=== PATIENT | male | born 1995 | race Caucasian/White ===

== ENCOUNTER 2019-08-12 13:39 | Emergency (ER) | payer OTHER ==
[~2019-08-12] VITALS: Ht 175.3 cm; Wt 98.6 kg
[2019-08-12] MEDS ORDERED: NS 1,000 ML IV ONE (14:00)
[2019-08-12] MEDS ORDERED: diphenhydrAMINE 50MG/ML VIAL (J1200) IV ONE (14:00)
[2019-08-12] MEDS ORDERED: METOCLOPRAMIDE INJ 10MG/2ML VIAL (J2765 PER 1) IV ONE (14:00)
--- NOTE | 2019-08-12 14:09 | REP ---
Head CT without contrast: History: Trauma. Comparison study: No comparison study. CT findings: Bone window settings demonstrate an intact bony calvarium. There is no evidence of skull fracture or incidental bony calvarial lesion. The visualized paranasal sinuses appear clear. No intraorbital abnormality is seen. On soft tissue window setting images; the lateral, third, and fourth ventricles are normal in size and position. Edwards-white differentiation pattern is normal above and below the tentorium. There are is no evidence of intracranial hemorrhage. No mass, edema, infarction, or midline shift is seen. No extra-axial fluid collection is appreciated. Impression: Negative noncontrast head CT. Electronically Signed by Yobany Shah MD 08/12/2019 02:00 P
[2019-08-12] MEDS ORDERED: levETIRAcetam INJection 1,000 MG in D5W 100 ML IV ONE (15:00)
[2019-08-12] MEDS ORDERED: KEPP1TAB2 PO (15:05)
[2019-08-12 15:45] VITALS: BP 116/58
== END 2019-08-12 16:09 | disposition home or self-care (01) ==
LOC: M ED 13:39
DX: G40.419 Other generalized epilepsy and epileptic syndromes, intractable, without status epilepticus (principal); Z86.69 Personal history of other diseases of the nervous system and sense organs
CPT/HCPCS: 70450; 80047; 96361; 96365; 96375; 99284; J1200; J1953; J2765

== ENCOUNTER → 2019-08-15 | Outpatient (CLI) | payer OTHER ==
[~2019-08-15] MED LIST: KEPP1TAB2 PO
[2019-08-15 14:34] LABS: FOLATE 18.8 NG/ML; RHEUMATOID FACTOR QUANT < 10.0 IU/ML (<15.0); TOTAL 25(OH) VITAMIN D 10.9 NG/ML (30.0-100.0); VITAMIN B12 LEVEL 1118 PG/ML
[2019-08-29 14:08] LABS: ANTINUCLEAR ANTIBODIES DIRECT Negative (Negative)
== END ==
LOC: M WUC 10:54
PROVIDERS: ATTEND Psychiatry & Neurology Neurology
DX: G43.909 Migraine, unspecified, not intractable, without status migrainosus (principal); R56.9 Unspecified convulsions

== ENCOUNTER → 2019-12-20 | Outpatient (CLI) | payer OTHER | LOC: M LAB 08:40 | PROVIDERS: ATTEND Psychiatry & Neurology Neurology | DX: G43.909 Migraine, unspecified, not intractable, without status migrainosus (principal) ==

== ENCOUNTER 2020-01-12 15:35 | Emergency (ER) | payer OTHER ==
[~2020-01-12] VITALS: Ht 175.3 cm; Wt 97.7 kg
[2020-01-12] MEDS ORDERED: LEVE10003 PO (16:09)
[2020-01-12] MEDS ORDERED: VITA50005 PO (16:09)
[2020-01-12] MEDS ORDERED: NS 1,000 ML IV ONE (16:30)
[2020-01-12] MEDS ORDERED: KETOROLAC 30 MG/ML 1ML VIAL IV ONE (16:30)
[2020-01-12] MEDS ORDERED: ACETAMINOPHEN 325 MG TAB PO ONE (18:15)
[2020-01-12 18:44] VITALS: BP 146/84
== END 2020-01-12 18:30 | disposition home or self-care (01) ==
LOC: M ED 15:35
DX: R51.9 Headache, unspecified (principal); G40.419 Other generalized epilepsy and epileptic syndromes, intractable, without status epilepticus; Z79.899 Other long term (current) drug therapy
CPT/HCPCS: 80180; 96361; 96374; 99284; J1885

== ENCOUNTER 2020-02-24 19:53 | Emergency (ER) | payer OTHER ==
[~2020-02-24] VITALS: Ht 175.3 cm; Wt 95.5 kg
[~2020-02-24 19:53] MED LIST changes: +LEVE10003 PO; +VITA50005 PO
[2020-02-24] MEDS ORDERED: SUMA100T2 PO (20:16)
[2020-02-24] MEDS ORDERED: DIVA500T94 PO (20:24)
[2020-02-24] MEDS ORDERED: NS 1,000 ML IV ONE (20:30)
[2020-02-24 20:37] LABS: BASO # 0.1 10^3/uL (0.0-0.2); BASO % 0.9 % (0.0-1.0); EOS # 0.3 10^3/uL (0.0-0.5); EOS % 2.9 % (0.0-3.0); HEMATOCRIT 47.5 % (42.0-52.0); LYMPH # 1.2 10^3/uL (1.5-5.0); LYMPH % 12.4 % (24.0-44.0); MEAN CORPUSCULAR HEMOGLOBIN 30.2 pg (27.0-33.0); MEAN CORPUSCULAR HGB CONC 33.7 g/dl (32.0-36.5); MEAN CORPUSCULAR VOLUME 89.8 fl (80.0-96.0); MONO # 0.9 10^3/uL (0.0-0.8); MONO % 8.7 % (0.0-5.0); NEUTROPHILS # 7.1 10^3/uL (1.5-8.5); NEUTROPHILS % 71.8 % (36.0-66.0); PLATELET COUNT, AUTOMATED 220 10^3/uL (150-450); RED BLOOD COUNT 5.29 10^6/uL (4.30-6.10); WHITE BLOOD COUNT 9.9 10^3/uL (4.0-10.0)
[2020-02-24] MEDS ORDERED: DIVALPROEX 500 MG TAB PO ONE (20:45)
--- NOTE | 2020-02-24 21:02 | REPVR ---
PROCEDURE INFORMATION: Exam: XR Chest, 1 View Exam date and time: 02/24/2020 8:51 PM Age: 24 years old Clinical indication: Shortness of breath; Additional info: Altered mental status TECHNIQUE: Imaging protocol: XR of the chest Views: 1 view. COMPARISON: No relevant prior studies available. FINDINGS: Lungs: Unremarkable. No consolidation. Pleural space: Unremarkable. No pleural effusion. No pneumothorax. Heart/Mediastinum: Unremarkable. No cardiomegaly. Bones/joints: Unremarkable. IMPRESSION: No acute findings. Electronically signed by: Anthony Geronimo On 02/24/2020 21:02:22 PM
[2020-02-24 21:49] LABS: ACETAMINOPHEN LEVEL < 2.0 UG/ML (10.0-30.0); ALBUMIN 4.1 GM/DL (3.2-5.2); ALT/SGPT 69 U/L (12-78); BILIRUBIN,DIRECT 0.2 MG/DL (0.0-0.2); BILIRUBIN,TOTAL 0.7 MG/DL (0.2-1.0); BLOOD UREA NITROGEN 11 MG/DL (7-18); CALCIUM LEVEL 9.2 MG/DL (8.5-10.1); CARBON DIOXIDE LEVEL 23 MEQ/L (21-32); CHLORIDE LEVEL 107 MEQ/L (98-107); CREATININE FOR GFR 0.96 MG/DL (0.70-1.30); ETHYL ALCOHOL (ETHANOL) < 0.003 % (0.000-0.010); GLOMERULAR FILTRATION RATE > 60.0 (>60); GLUCOSE, FASTING 101 MG/DL (70-100); POTASSIUM SERUM 4.5 MEQ/L (3.5-5.1); SALICYLATE LEVEL < 1.7 MG/DL (5.0-30.0); SODIUM LEVEL 139 MEQ/L (136-145); TOTAL PROTEIN 7.4 GM/DL (6.4-8.2)
[2020-02-24 21:57] LABS: AMPHETAMINES LEVEL URINE NEGATIVE (NEGATIVE); BARBITURATES URINE NEGATIVE (NEGATIVE); BENZODIAZEPINES URINE NEGATIVE (NEGATIVE); CANNABINOIDS URINE NEGATIVE (NEGATIVE); COCAINE METABOLITE URINE NEGATIVE (NEGATIVE); METHADONE URINE NEGATIVE (NEGATIVE); OPIATES URINE NEGATIVE (NEGATIVE); PHENCYCLIDINE URINE NEGATIVE (NEGATIVE)
[2020-02-24] MEDS ORDERED: DEPA250T32 PO (22:12)
[2020-02-24 22:15] VITALS: BP 139/62
== END 2020-02-24 22:24 | disposition home or self-care (01) ==
LOC: M ED 19:53
DX: G40.409 Other generalized epilepsy and epileptic syndromes, not intractable, without status epilepticus (principal)
CPT/HCPCS: 71045; 80048; 80076; 80164; 80307; 81001; 84443; 85025; 93041; 94760; 96360; 96361; 99285; G0480

== ENCOUNTER 2020-03-14 09:46 | Emergency (ER) | payer OTHER ==
[~2020-03-14] VITALS: Ht 175.3 cm; Wt 102.3 kg
[~2020-03-14 09:46] MED LIST changes: +DEPA250T32 PO; +DIVA500T94 PO; +SUMA100T2 PO
--- OUTSIDE RECORDS SUMMARY | 2020-03-14 10:29 | CCD ---
Author Author [facility] Organization [facility] Address Unknown Phone Unavailable Care Team Providers [employer] Groover Name Role Phone Shellie CLINE IT LEAD Unavailable Unavailable ZEGIL D LUCITA IT LEAD Unavailable Unavailable ZELADANL D LUCITA IT LEAD Unavailable Unavailable Layne Levin MD Unavailable Unavailable Layne Levin MD Unavailable Unavailable Layne Levin MD Unavailable Unavailable Layne Levin MD Unavailable Unavailable Layne Levin MD Unavailable Unavailable Layne Levin MD Unavailable Unavailable Layne Levin MD Unavailable Unavailable Layne Levin MD Unavailable Unavailable Layne Levin MD Unavailable Unavailable Layne Levin MD Unavailable Unavailable Layne Levin MD Unavailable Unavailable Layne Levin MD Unavailable Unavailable Layne Levin MD Unavailable Unavailable Layne Levin MD Unavailable Unavailable Layne Levin MD Unavailable Unavailable Layne Levin MD Unavailable Unavailable Layne Levin MD Unavailable Unavailable Layne Levin MD Unavailable Unavailable Layne Levin MD Unavailable Unavailable Layne Levin MD Unavailable Unavailable Layne Levin MD Unavailable Unavailable Layne Levin MD Unavailable Unavailable Layne Levin MD Unavailable Unavailable Layne Levin MD Unavailable Unavailable Layne Levin MD Unavailable Unavailable Layne Levin MD Unavailable Unavailable Layne Levin MD Unavailable Unavailable Layne Levin MD Unavailable Unavailable Layne Levin MD Unavailable Unavailable Layne Levin MD Unavailable Unavailable Layne Levin MD Unavailable Unavailable Layne Levin MD Unavailable Unavailable Layne Levin MD Unavailable Unavailable Layne Levin MD Unavailable Unavailable Layne Levin MD Unavailable Unavailable Layne Levin MD Unavailable Unavailable Layne Levin MD Unavailable Unavailable Layne Levin MD Unavailable Unavailable Layne Levin MD Unavailable Unavailable Layne Levin MD Unavailable Unavailable Layne Levin MD Unavailable Unavailable Ali, Layne MD Unavailable Unavailable Ali, Layne MD Unavailable Unavailable Ali, Layne MD Unavailable Unavailable Ali, Layne MD Unavailable Unavailable Ali, Layne MD Unavailable Unavailable Ali, Layne MD Unavailable Unavailable Ali, Layne MD Unavailable Unavailable Ali, Layne MD Unavailable Unavailable Hadian, Kyaw Unavailable Unavailable Hadian, Kyaw Unavailable Unavailable Hadian, Kyaw Unavailable Unavailable Hadian, Kyaw Unavailable Unavailable Hadian, Kyaw Unavailable Unavailable Hadian, Kyaw Unavailable Unavailable Hadian, Kyaw Unavailable Unavailable Hadian, Kyaw Unavailable Unavailable Hadian, Kyaw Unavailable Unavailable Hadian, Kyaw Unavailable Unavailable Hadian, Kyaw Unavailable Unavailable Hadian, Kyaw Unavailable Unavailable Hadian, Kyaw Unavailable Unavailable Hadian, Kyaw Unavailable Unavailable Hadian, Kyaw Unavailable Unavailable Hadian, Kyaw Unavailable Unavailable Hadian, Kyaw Unavailable Unavailable Hadian, Kyaw Unavailable Unavailable Hadian, Kyaw Unavailable Unavailable Hadian, Kyaw Unavailable Unavailable Hadian, Kyaw Unavailable Unavailable Hadian, Kyaw Unavailable Unavailable Hadian, Kyaw Unavailable Unavailable Hadian, Kyaw Unavailable Unavailable Hadian, Kyaw Unavailable Unavailable Hadian, Kyaw Unavailable Unavailable Hadian, Kyaw Unavailable Unavailable Hadian, Kyaw Unavailable Unavailable Hadian, Kyaw Unavailable Unavailable Hadian, Kyaw Unavailable Unavailable Hadian, Kyaw Unavailable Unavailable Hadian, Kyaw Unavailable Unavailable Hadian, Kyaw Unavailable Unavailable Re-disclosure Warning The records that you are about to access may contain information from federally-assisted alcohol or drug abuse programs. If such information is present, then the following federally mandated warning applies: This information has been disclosed to you from records protected by federal confidentiality rules (42 CFR part 2). The federal rules prohibit you from making any further disclosure of this information unless further disclosure is expressly permitted by the written consent of the person to whom it pertains or as otherwise permitted by 42 CFR part 2. A general authorization for the release of medical or other information is NOT sufficient for this purpose. The Federal rules restrict any use of the information to criminally investigate or prosecute any alcohol or drug abuse patient.The records that you are about to access may contain highly sensitive health information, the redisclosure of which is protected by Article 27-F of the [facility] Public Health law. If you continue you may have access to information: Regarding HIV / AIDS; Provided by facilities licensed or operated by the [facility] Office of Mental Health; or Provided by the [facility] Office for People With Developmental Disabilities. If such information is present, then the following [facility] mandated warning applies: This information has been disclosed to you from confidential records which are protected by state law. State law prohibits you from making any further disclosure of this information without the specific written consent of the person to whom it pertains, or as otherwise permitted by law. Any unauthorized further disclosure in violation of state law may result in a fine or correction sentence or both. A general authorization for the release of medical or other information is NOT sufficient authorization for further disc losure. Encounters Encounter Providers Location Date Indications Data Source(s ) Outpatient Attender: Kyaw Gilliam ED-LABPNP 01:29:00 PM EST - 03/04/2020 01:30:00 PM [facility] WELL Patient discharged. Outpatient Attender: Layne Levin MD Main office - [place] 02/26/2020 02:30:00 PM EST [facility] ([facility] Outpatient Attender: Layne Levin MD Main office - [place] 12/20/2019 11:00:00 AM EDT [facility] ([facility]) Outpatient Attender: Layne Levin MD Main office - [place] 08/24/2019 01:30:00 PM EDT [facility] ([facility]) Outpatient Attender: Layne Levin MD Main office - [place] 05/25/2019 02:30:00 PM EDT [facility] ([facility]) Outpatient [facility]PS[facility]-LABEJN 03/28/2019 08:22:00 PM [facility] Emergency Attender: LUCITA CLINE [facility] ED-ED 05/2019 04:14:00 PM EST - 03/28/2019 09:08:00 PM EST SEIZURE [facility] SEIZURE Patient discharged. Medications Medication Brand Name Start Date Product Form Dose Route Admi nistrative Instructions Pharmacy Instructions Status Indications Reaction Description Data Source(s) Divalproex Sodium 250 MG Delayed Release Oral Tablet Divalpr oex Sodium 02/26/2020 12:00:00 AM EST ORAL active [facility] ([facility]) Sumatriptan 100 MG Oral Tablet Sumatriptan Succinate 02/06/2020 12:00:00 AM EST ORAL active [facility] ( [facility] ) Divalproex Sodium 500 MG Delayed Release Oral Tablet Divalpr oex Sodium 02/05/2020 12:00:00 AM EST ORAL active [facility] ([facility] ) zonisamide 100 MG Oral Capsule Zonisamide 01/15/2020 12:00:00 AM EST ORAL completed [facility] ([facility] ) Levetiracetam 1000 MG Oral Tablet Levetiracetam 12/20/2019 12:00:00 A M EDT ORAL completed [facility] ([facility] ) Levetiracetam 750 MG Oral Tablet Levetiracetam 08/24/2019 12:00:00 AM EDT ORAL completed [facility] ([facility] ) Ergocalciferol 40298 UNT Oral Capsule Ergocalciferol 08/24/2019 12:00:00 AM EDT ORAL active [facility] ( [facility] ) No Active Medications 08/24/2019 12:00:00 AM EDT completed [facility] ([facility] ) 10 mg 05/26/2019 12:00:00 AM EDT tablet 60 TAKE ONE TABLET BY MOUTH EVERY DAY AT BEDTIME FOR 7 DAYS, THEN TAKE TWO TABLETS AT BEDTIME TAKE ONE TABLET BY MOUTH EVERY DAY AT BEDTIME FOR 7 DAYS, THEN TAKE TWO TABLETS AT BEDTIME SOLD: 05/28/2019 [facility] Amitriptyline Hydrochloride 10 MG Oral Tablet Amitriptyline HCL 05/25/2019 12:00:00 AM EDT ORAL completed [facility] ([facility] ) Insurance Providers Payer name Policy type / Coverage type Policy ID Covered libertarian ID Covered libertarian's relationship to young Policy Young Plan Information [facility] [id number] SP [id number] [facility] [id number] S [id number] [facility] [employer] [facility] [id number] SP [id number] [facility] [id number] S [id number] MEDICAID -CLINIC [id number] [facility] PLAN [id number] Problems, Conditions, and Diagnoses Code Display Name Description Problem Type Effective Dates Data Source(s) [id number] Migraine with typical aura Migraine with typical aura Problem 05/25/2019 12:00:00 AM EDT [facility] ([facility] Other seizures Other seizures Problem 04/06/2019 12:00: 00 AM EST [facility] ([facility] ) [id number] Generalized convulsive epilepsy Generalized conv ulsive epilepsy Problem 04/06/2019 12:00:00 AM EST [facility] ([facility] Surgeries/Procedures Procedure Description Date Indications Data Source(s) Magnetic Resonance Angiogtaphy Head W/O Contrast Material(S) 01/30/2020 12:00:00 AM EST [facility] ([facility] Magnetic Resonance Angiogtaphy Head W/O Contrast Material(S) 01/30/2020 12:00:00 AM EST [facility] ([facility] Magnetic Resonance Angiography Neck W/O Contrast Materials 01/30/2020 12:00:00 AM EST [facility] ([facility] Magnetic Resonance Angiography Neck W/O Contrast Materials 01/30/2020 12:00:00 AM EST [facility] ([facility] ELECTROENCEPHALOGRAM W/REC AWAKE&ASLEEP 10/02/2019 12: 00:00 AM EDT [facility] ([facility] ) ELECTROENCEPHALOGRAM W/REC AWAKE&ASLEEP 10/02/2019 12: 00:00 AM EDT [facility] ([facility] MRI Brain W/O Contrast, Followed By Contrast 0 12:00:00 AM EDT [facility] ([facility] MRI Brain W/O Contrast, Followed By Contrast 0 12:00:00 AM EDT [facility] ([facility] ) ELECTROENCEPHALOGRAM W/REC AWAKE&ASLEEP 04/27/2019 12: 00:00 AM EST [facility] ([facility] ) ELECTROENCEPHALOGRAM W/REC AWAKE&ASLEEP 04/27/2019 12: 00:00 AM EST [facility] ([facility] ) Results ID Date Data Source [id number] 03/05/2020 08:44:00 AM EST [facility] Name Value Range Interpretation Code Description Data Beti rce(s) Supporting Document(s) Respiratory specimen severe acute respir atory syndrome coronavirus 2 (SARS-CoV-2) RNA Negative (qualifier value) [facility] This lab was ordered by [facility] bucky and reported by . ID Date Data Source [id number] 03/05/2020 08:28:00 AM EST [facility] Name Value Range Interpretation Code Description Data Beti rce(s) Supporting Document(s) SARS-CoV-2 RNA INHOUSE Negative Normal (applies to non-n umeric results) [facility] THIS IS A [facility] REPORTABLE COMMUNICABLE DISEASE. Testing was performed using the Written COVID-19 MDx Assay. This test has been authorized by FDA under an (Emergency Use Authorization) EUA for use by authorized laboratories for individuals who are suspected of COVID-19 by their healthcare provider. This test is only authorized for the duration of the declaration that circumstances exist justifying the authorization of emergency use of in vitro diagnostic tests for detection and/or diagnosis of SARS-CoV-2. Methodology: Endpoint RT-PCR. Fact sheets for this EUA assay can be found at the following links: Providers: https://www.fda.gov/media/238389/download Patients : https://www.fda.gov/media/844371/download THIS IS A [facility] REPORTABLE COMMUNICABLE DISEASE Negative results do not preclude SARS-CoV-2 infection and should not be used as the sole basis for patient management decisions. Negative results must be combined with clinical observations,patient history, and epidemiological information. ID Date Data Source [id number] 12/20/2019 08:57:00 AM EDT [facility] ([facility] Name Value Range Interpretation Code Description Data Beti rce(s) Supporting Document(s) Laboratory test finding (navigational concept) Laboratory test result [facility] ([facility]) . 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 Laboratory test finding (navigational concept) Laboratory test result [facility] ([facility] ) . 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 Laboratory test finding (navigational concept) Laboratory test result [facility] ([facility], ) . 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 [place] Insight pathogenicity assessment NOTCH3 c.2953 C>T is a missense variant classified as pathogenic based on the following information: Variant NOTCH3 c.2953 C>T ([id number]) - This variant has not been reported in large, multi-ethnic general populations. - This variant has been identified in at least one individual with clinical features associated with this gene. - At [facility], this variant goodrich s been found in a single case where an alternate explanation for disease was also identified. - ClinVar contains an entry for this cas josé miguel (URL: www.ncbi.nlm.nih.gov/clinvar/; Variation ID: [id number]). - This variant alters a critical locatio n within the protein, and is expected to severely affect function and cause disease. - Greater than 90% of pathogenic mutatio ns identified in NOTCH3 involve the gain or loss of a cysteine residue within the epidermal growth factor (EGF)-like repeat domain. References: Priya S, et al. (2009) Brain 132: 933-9. (PMID: 01829853) Ayana N, et al. (2005) Arch Neurol 62: 1091-4. (PMID: 67108699) Rosangela Faustin, et al. (2004) Brain 127: 2533-9. (PMID: 83659436) Laurel Friedman, et al. (2001) Lancet 358: 2049-51. (PMID: 25842198) Laurel Friedman, et al. (1997) Lancet 350: 1511-5. (PMID: 2074200) Genome Aggregation Database (flatevomAD), [place], [place] (URL: http://gnomad.broadinstitute.org) Recommendations: This individual's family members are at risk for possessing or inheriting this variant. Careful reconciliation of this molecular data with this individual's clinical presentation, family history, and other laboratory results, in conjunction with genetic counseling, is highly recommended. Health care providers, please contact the [facility] Client Services Department at if you wish to consult with a Individual Small Group Instructor or a Genetic Counselor regarding this test result. Background information: Cerebral small vessel disease represents a heterogeneous group of disorders leading to stroke and cognitive impairment. While most small vessel diseases appear sporadic and related to age and hypertension, a minority of patients with familial small vessel disease carry pathogenic variants in one of the known small vessel disease genes such as the NOTCH3 gene. CADASIL is a hereditary small vessel disease of the brain leading to recurrent strokes, migraine with aura, cognitive decline, and dementia. In some individuals, mood disturbances and other neurological manifestations, including focal or generalized seizures, may also be present. Pathogenic variant in the NOTCH3 gene have been associated with CADASIL. The NOTCH3 gene encodes NOTCH3, a cell surface receptor important in arterial development. Pathogenic variants in NOTCH3 cause degeneration of VSMCs and thickening of the arterial rosales. CADASIL resulting from pathogenic variants in this gene is inherited as an autosomal dominant disorder. The majority of pathogenic variants have been reported to be loss or gain of a cysteine in EGF motifs. NOTCH3 gene information: RODNEY ID: *[id number]; Chromosome Location: 19p13.12; NCBI Reference Sequence: [id number] 0435.2; In the cDNA, the initiator codon, ATG (methionine), is designated as codon number 1 and the "A" is designated as nucleotide +1. The initiator codon is located in exon 1 and all subsequent numbering is sequential. Phenotype information: RODNEY ID: #[id number] for cerebral arteriopathy, autosomal dominant, with subcortical infarcts and leukoencephalopathy; CADASIL Laboratory test finding (navigational concept) Laboratory test result [facility] ([facility]) . DNA sequencing was performed using advanced ("next-generation") sequencing technology. Advanced sequencing was performed on sheared genomic DNA libraries enriched for target regions using in-solution hybrid capture. Target regions include coding regions in exons and at least ten non-coding nucleotides adjacent to each of these coding regions. Resulting sequences were then analyzed using bioinformatics tools in a standardized process that includes alignment to the GRCh37/hg19 genomic build and use of the nTAG Interactive Analysis Toolkit 2.3-9 for variant detection. A mean coverage depth of at least 30 sequencing reads is obtained within each target region, with a minimum coverage depth of at least 20X. Target regions with coverage depths less than the minimum are not reported. Internal testing demonstrated approximately 99% sensitivity and approximately 99% specificity for detecting DNA sequence variation. In some limited circumstances, such as for regions that are difficult to sequence using advanced sequencing, Alejandra sequencing of PCR-amplified target regions (using bi-directional sequence or alternate dye chemistries) may be performed in lieu of this process. Benign and likely benign variants, if identified, are considered normal and are not reported, but are available upon request. Limitations of DNA sequencing analysis: This method does not detect large deletions, insertions, or structural variations, and may not detect variants in patients exhibiting mosaicism. Furthermore, allele dropout cannot be detected in [place] sequenced regions. Additionally, this test will not detect variants in low coverage regions, which may occur in an analysis of this scope. Regions with exceptionally high or low GC content, repetitive regions or regions having a high degree of similarity with other regions in the genome are more susceptible to low coverage and/or reduced sensitivity. Furthermore, this test does not detect variants in regions of the gene not analyzed (including promoter, 5' and 3' untranslated regions, introns, and certain regions having consistently low coverage).Although rare, false positive or false negative results may occur. All results should be interpreted in the context of clinical findings, relevant history, and other laboratory data. Limitation of variant analysis: The classification and interpretation of the variant(s) identified reflect the current state of [facility] understanding at the time of this report. Variant classification and interpretation are subject to professional judgment, and may change for a variety of reasons, including but not limited to, updates in classification guidelines and availability of additional scientific and clinical information. This test result should be used in conjunction with the health care providers clinical evaluation. Inquiry regarding potential changes to the classification of the variant is strongly recommended prior to making any future clinical decision. For questions regarding variant classification updates or our Family Insight Program, please call [facility] at [phone] to speak to a genetic counselor or medical laboratory technicians, or visit [email or web address]. For patients who are interested in sharing de-identified genetic and health information to improve understanding of genetics and health, please visit [email or web address]. GenomeConnect is an online registry designed by the Clinical Genome [employer] ([employer]) and is not affiliated with [employer]. Laboratory test finding (navigational concept) Laboratory test result [facility] ([facility] ) . 1. Sb Jasmine et al. (2013) J Clin Jonas rosci 20: 322-3. (PMID: 33076085) 2. PercyRANDY ch, et al. (2013) J Chin Med Assoc 76: 319-24. (PMID: 17735424) 3. Toyin Guillory et al. (2009) Bra in 132: 1601-12. (PMID: 37958456) 4. Priya S, et al. (2009) Brain 132: 9 33-9. (PMID: 53229437) 5. Mirian Oconnell, et al. (2013) J Clin A esthet Dermatol 6: 29-33. (PMID: 16839143) 6. Cm H, et al. (2012) PLoS One 7: e 58291. (PMID: 91495651) This test was developed and its analytical performance characteristics have been determined by [facility]. It has not been cleared or approved by the U.S. Food and Drug Administration. This assay has been validated pursuant to the CLIA regulations and is used for clinical purposes. Performed at: - [facility] [address] [id number] Production Administrative Assistant: Clay Honeycutt PhD, Phone: [phone] ID Date Data Source [id number] 08/15/2019 11:01:00 AM EDT [facility] ([facility] ) Name Value Range Interpretation Code Description Data Beti rce(s) Supporting Document(s) NOTCH3 gene mutations found [Identifier] in Blood or Tissue by Molecular genetics method Nominal Laboratory test result [facility] ([facility], ) SPECIMEN TOO OLD FOR ANALYSIS. Please resubmit with new order and sample. ID Date Data Source [id number] 08/15/2019 11:01:00 AM EDT [facility] ([facility] Name Value Range Interpretation Code Description Data Beti rce(s) Supporting Document(s) Antinuclear Antibodies Direct Laboratory test result [facility] ([facility] ) ID Date Data Source [id number] 08/15/2019 11:01:00 AM EDT [facility] ([facility] ) Name Value Range Interpretation Code Description Data Beti rce(s) Supporting Document(s) Rheumatoid factor [Units/volume] in Serum or Plasma Laboratory test result [facility] ([facility] ) Calcidiol [Mass/volume] in Serum or Plasma 10.9 ng/mL 30.0-100.0 [facility] ([facility], ) Erythrocyte sedimentation rate by 2H Westergren method 1 mm/hr 0-1 5 [facility] ([facility]) ID Date Data Source [id number] 08/15/2019 11:01:00 AM EDT [facility] ([facility]) Name Value Range Interpretation Code Description Data [facility] rce(s) Supporting Document(s) Vitamin B12 Level 1118 pg/mL [facility] ([facility]) VITAMIN B12 NORMAL RANGE NORMAL 247 - 911 PG/ML INDETERMINATE 211 - 246 PG/ML DEFICIENT LESS THAN 211 PG/ML Folate 18.8 ng/mL [facility] ([facility]) FOLATE NORMAL RANGE NORMAL GREATER THAN 5.4 NG/ML INDETERMINATE 3.4-5.4 NG/ML DEFICIENT LESS THAN 3.4 NG/ML ID Date Data Source [id number] 03/28/2019 08:50:00 PM [facility] Name Value Range Interpretation Code Description [facility] Supporting Document(s) Sodium 146 mmol/L 136-145 Above high normal [facility] Potassium 3.5-5.1 Normal (applies to non-numeric resul ts) [facility] Chloride 108 mmol/L 98-107 Above high normal [facility] Carbon Dioxide CO2 21-32 Normal (applies to non-numer ic results) [facility] Anion Gap 5.0-16.0 Normal (applies to non-numeric resul ts) [facility] BUN 15 mg/dL 7-18 Normal (applies to non-numeric results) [facility] Creatinine,Serum 0.8-1.5 Normal (applies to non-numeric results) [facility] GFR >60 Normal (applies to non-numeric results) [facility] Glucose Level 105 mg/dL 60-99 Above high normal [facility] Reference range is only applicable when patient is fasting Note the following drug interference: Sulfasalazine Sulfapyridine Can see falsely depressed Can see falsely elevated result with up to 17% results with up to 11% decrease in measurement increase in measurement Recommend patients be collected for this test prior to administration of either drug. Calcium 8.5-10.1 Below low normal [facility] spital Bilirubin,Total 0.1-1.9 Normal (applies to non-numeric results) [facility] SGOT(AST) 34 U/L 15-37 Normal (applies to non-numeric resul ts) [facility] Note the following drug interference: Sulfasalazine Sulfapyridine Can see falsely depressed Can see falsely elevated result with up to 10% results with up to 10% decrease in measurement increase in measurement Recommend patients be collected for this test prior to administration of either drug. SGPT(ALT) 57 U/L 12-78 Normal (applies to non-numeric resul ts) [facility] Note the following drug interference: Sulfasalazine Sulfapyridine Can see falsely depressed Can see falsely elevated result with up to 29% results with up to 10% decrease in measurement increase in measurement Recommend patients be collected for this test prior to administration of either drug. Alkaline Phosphatase 61 U/L 38-126 Normal (applies to non-num wiliam results) [facility] can increase Alkaline Phosp le vels up to 2 times the normal adult value. Normal values for children and adolescents are 2 to 3 times the normal adult value. Total Protein 6.0-8.2 Normal (applies to non-numeric re sults) [facility] Albumin Level 3.4-5.0 Normal (applies to non-numeric re sults) [facility] ID Date Data Source [id number] 03/28/2019 08:50:00 PM EST [facility] Name Value Range Interpretation Code Description [facility] Supporting Document(s) Lactic Acid,3 Hr Post 0.4-2.0 Normal (applies to non-nu meric results) [facility] ID Date Data Source [id number] 03/28/2019 08:36:00 PM EST [facility] Name Value Range Interpretation Code Description Data Beti rce(s) Supporting Document(s) White Blood Count 3.5-10.5 Above high normal [facility] Red Blood Count 4.30-5.70 Normal (applies to non-numeric results) [facility] Hemoglobin 13.5-17.5 Normal (applies to non-numeric resul ts) [facility] Hematocrit 38.8-50.0 Normal (applies to non-numeric resul ts) [facility] Mean Corpuscular Volume 81.2-95.1 Normal (applies to non- numeric results) [facility] Mean Corpuscular Hgb 25.6-32.2 Normal (applies to non-num wiliam results) [facility] Mean Corpuscular Hgb Conc 32.0-36.0 Normal (applies to no n-numeric results) [facility] Red Cell Distribution Width 11.8-15.6 Normal (appli es to non-numeric results) [facility] Platelet Count 192 x10 3/uL 150-450 Normal (applies to non-numeric results) [facility] Mean Platelet Volume 9.4-12.4 Normal (applies to non-num wiliam results) [facility] Neutrophils% (Auto) 31.0-71.0 Above high normal [facility] Lymphocytes% (Auto) 20.0-55.0 Below low normal [facility] Monocytes% (Auto) 4.0-12.0 Normal (applies to non-numeri c results) [facility] Eosinophils% (Auto) 1.0-8.0 Below low normal [facility] Basophils% (Auto) 0.0-2.0 Normal (applies to non-numeri c results) [facility] Immature Granulocytes% (Auto) 0.0-2.0 Normal (dannie lies to non-numeric results) [facility] Neutrophils# (Auto) 1.50-6.20 Above high normal [facility] Lymphocytes# (Auto) 1.20-4.00 Normal (applies to non-nume jory results) [facility] Monocytes# (Auto) 0.00-0.90 Above high normal [facility] Eosinophils# (Auto) 0.00-0.50 Normal (applies to non-nume jory results) [facility] Basophils# (Auto) 0.00-0.20 Normal (applies to non-numeri c results) [facility] Immature Granulocytes# (Auto) 0.00-7.00 No rmal (applies to non-numeric results) [facility] ID Date Data Source [id number] 04/03/2019 08:20:00 AM EST [facility] spital NO GROWTH AFTER 120 HOURS (5 Days) Proc edure Performed By: [facility] [address] [place] [address] Director: Melissa Hall Name Value Range Interpretation Code Description Data Beti rce(s) Supporting Document(s) ID Date Data Source [id number] 04/02/2019 10:28:00 PM EST [facility] NO GROWTH AFTER 120 HOURS (5 Days) Pr ocedure Performed By: [facility] [address] [place] [address] Director: Melissa Hall Name Value Range Interpretation Code Description Data Beti rce(s) Supporting Document(s) ID Date Data Source [id number] 04/03/2019 08:19:00 AM EST [facility] spital NO GROWTH AFTER 120 HOURS (5 Days) Proc edure Performed By: [facility] [address] [place] [address] Director: Melissa Hall Name Value Range Interpretation Code Description Data Beti rce(s) Supporting Document(s) ID Date Data Source [id number] 04/02/2019 10:28:00 PM EST [facility] NO GROWTH AFTER 120 HOURS (5 Days) Pr ocedure Performed By: [facility] [address] [place] [address] Director: Melissa Hall Name Value Range Interpretation Code Description Data Beti rce(s) Supporting Document(s) ID Date Data Source [id number] 03/28/2019 05:54:00 PM [facility] Name Value Range Interpretation Code Description Data Beti rce(s) Supporting Document(s) Lactic Acid 0.4-2.0 PH [facility] l A repeat Lactic Acid will automatically be reflexed by lab to be drawn in 3 hours. Provider re-order is not necessary. JESSICA read back critical information 03/28/19 2116 LAB.POFRA ID Date Data Source [id number] 03/29/2019 11:59:00 AM [facility] Imaging Services Department Imaging Report [address] [place], [place] [address] %(RAD)RES..mtdd.print.filter("line") Name: DAMION LAURENT : 1995 Age/Sex: 23M Ordering Provider: AARON Mcmahon Med Rec #: [id number] Reg Status: [facility] Room #: Date of Service: 03/28/19 Report Number: [id number] cc:PCP None Send Report To: [id number] CT/CT Abdomen & Pelvis No Contras Reason for exam: pain vomiting FINDINGS: Examination of the heart and pericardia demonstrate no significant abnormalities. The lung bases are clear. The liver, spleen, pancreas, adrenals and kidneys demonstrate no significant abnormalities. The bowel is of normal caliber. There is no lymphadenopathy by CT size criteria. There is a normal appearing gallbladder. No abnormal intraabdominal fluid collections. IMPRESSION: Normal appearing gallbladder. No evidence of acute gastrointestinal or intraabdominal pathology. While performing the above CT exam, the following dose reduction techniques wereused: *Automated exposure control *Adjustment of the mA and/or kV according to patient size *Use of iterative reconstruction technique CT Dose in mGy: Contrast Agent: Amount in ml: Method of Administration: REPORT SIGNATURE ON FILE Reported By: Peyman Gamboa MD <Electronically signed by Peyman Gamboa MD> 03/30/19 0837 Dictation Date/Time: 03/28/19 1840 Transcribed Date/Time: 03/29/19 1159 Social Economist: HAILEY Name Value Range Interpretation Code Description Data Beti rce(s) Supporting Document(s) ID Date Data Source [id number] 03/28/2019 06:36:00 PM [facility] spital Method performed by Isothermal Nucle ic Acid Amplification. Reference value: Influenza A and B viral RNA not detected. This result does not rule out co-infections with other pathogens or identify any specific influenza A or B virus subtype/lineage. Negative results do not preclude infection with influenza virus and should not be the sole basis of a patient treatment decision.Not DetectedNot Detected Name Value Range Interpretation Code Description Data [facility](s) Supporting Document(s) ID Date Data Source [id number] 03/28/2019 05:29:00 PM [facility] Collected By: Nurse Initials: [place] Time Collected: 1658 Collected By: Nurse Initials: [place] Time Collected: 1658 Name Value Range Interpretation Code Description Data [facility](s) Supporting Document(s) Color,Urine Colorl-Dk Y Normal (applies to non-numeric res ults) [facility] Clarity,Urine Clear Normal (applies to non-numeric re sults) [facility] Specific [place],Urine 1.005-1.030 Normal (applies to non- numeric results) [facility] pH,Urine 5.0-8.0 Normal (applies to non-numeric resul ts) [facility] Protein,Urine Negative Normal (applies to non-numeric re sults) [facility] Glucose,Urine Negative Normal (applies to non-numeric re sults) [facility] Ketones,Urine Negative Normal (applies to non-numeric re sults) [facility] Blood,Urine Negative [facility] Bilirubin,Urine Negative Normal (applies to non-numeric results) [facility] Urobilinogen,Urine 0.2-1.0 Normal (applies to non-numer ic results) [facility] Leukocyte Esterase,Urine Negative Normal (applies to non -numeric results) [facility] Nitrite,Urine Negative Normal (applies to non-numeric re sults) [facility] ID Date Data Source [id number] 03/28/2019 05:29:00 PM [facility] Collected By: Nurse Initials: [place] Time Collected: 1658 Collected By: Nurse Initials: [place] Time Collected: 1658 Name Value Range Interpretation Code Description Data Beti rce(s) Supporting Document(s) RBC,Urine None Seen [facility] WBC,Urine None Seen Normal (applies to non-numeric resul ts) [facility] Casts,Urine None Seen Normal (applies to non-numeric resu lts) [facility] Epithelial Cells,Urine None - Few Normal (applies to non-n umeric results) [facility] Amorphous Sediment,Urine None Seen [facility] Bacteria,Urine None Seen Normal (applies to non-numeric r esults) [facility] ID Date Data Source [id number] 03/28/2019 05:26:00 PM [facility] Name Value Range Interpretation Code Description Data Beti rce(s) Supporting Document(s) UDS Phencyclidine Screen Negative Normal (applies to non -numeric results) [facility] UDS Benzodiazepines Screen Negative Normal (applies to n on-numeric results) [facility] UDS Cocaine Screen Negative Normal (applies to non-numer ic results) [facility] UDS Ampetamine Screen Negative Normal (applies to non-nu meric results) [facility] UDS Cannabinoids Screen Negative Normal (applies to non- numeric results) [facility] UDS Opiates Screen Negative Normal (applies to non-numer ic results) [facility] UDS Barbiturates Screen Negative Normal (applies to non- numeric results) [facility] UDS Tricyclic Screen Negative Normal (applies to non-num wiliam results) [facility] Therapeutic Drug Ranges for Emergency Threshold Levels (ng/mL) PCP 25 Benzodiazepine 300 Cocaine 300 Amphetamines 1000 Cannabinoids 50 Opiates 300 Barbiturates 300 Tricyclic(TCA) 1000 Emergency toxicology analytes exceeding the therapeutic threshold levels are positive. Positive findings are unconfirmed. Positive drug levels may be confirmed at the request of the ordering provider. Results are to be used for medical treatment purposes only. ID Date Data Source [id number] 03/29/2019 07:16:00 AM [facility] Imaging Services Department Imaging Report [address] [place], [place] [address] %(RAD)RES..mtdd.print.filter("line") Name: DAMION LAURENT : 1995 Age/Sex: 23M Ordering Provider: AARON Mcmahon Med Rec #: [id number] Reg Status: [facility] ER Room #: Date of Service: 03/28/19 Report Number: [id number] cc:PCP None Send Report To: [id number] CT/CT Head No Contrast Reason for exam: seizure FINDINGS: Ventricular system is midline without evidence for mass effect. No areas of localized brain edema identified. No signs for acute intracranial bleed either intra or extra axial bleed. Bones of the skull are intact. IMPRESSION: Normal noncontrast CT brain. While performing the above CT exam, the following dose reduction techniques wereused: *Automated exposure control *Adjustment of the mA and/or kV according to patient size *Use of iterative reconstruction technique CT Dose in mGy: Contrast Agent: Amount in ml: Method of Administration: REPORT SIGNATURE ON FILE Reported By: Vivien Shultz MD <Electronically signed by Vivien Shultz MD> 03/29/19 1057 Dictation Date/Time: 03/28/19 1702 Transcribed Date/Time: 03/29/19 0716 Social Economist: LEVON Name Value Range Interpretation Code Description Data Beti rce(s) Supporting Document(s) ID Date Data Source [id number] 03/28/2019 05:15:00 PM EST [facility] Name Value Range Interpretation Code Description Data Beti rce(s) Supporting Document(s) Sodium 145 mmol/L 136-145 Normal (applies to non-numeric resul ts) [facility] Potassium 3.5-5.1 Normal (applies to non-numeric resul ts) [facility] Chloride 104 mmol/L 98-107 Normal (applies to non-numeric resul ts) [facility] Carbon Dioxide CO2 21-32 Below low normal [facility] Anion Gap 5.0-16.0 Above high normal [facility] ospital BUN 18 mg/dL 7-18 Normal (applies to non-numeric results) [facility] Creatinine,Serum 0.8-1.5 Above high normal [facility] GFR 57 mL/min >60 Below low normal [facility] spital Glucose Level 142 mg/dL 60-99 Above high normal [facility] Reference range is only applicable when patient is fasting Note the following drug interference: Sulfasalazine Sulfapyridine Can see falsely depressed Can see falsely elevated result with up to 17% results with up to 11% decrease in measurement increase in measurement Recommend patients be collected for this test prior to administration of either drug. Calcium 8.5-10.1 Normal (applies to non-numeric resul ts) [facility] Bilirubin,Total 0.1-1.9 Normal (applies to non-numeric results) [facility] SGOT(AST) 30 U/L 15-37 Normal (applies to non-numeric resul ts) [facility] Note the following drug interference: Sulfasalazine Sulfapyridine Can see falsely depressed Can see falsely elevated result with up to 10% results with up to 10% decrease in measurement increase in measurement Recommend patients be collected for this test prior to administration of either drug. SGPT(ALT) 64 U/L 12-78 Normal (applies to non-numeric resul ts) [facility] Note the following drug interference: Sulfasalazine Sulfapyridine Can see falsely depressed Can see falsely elevated result with up to 29% results with up to 10% decrease in measurement increase in measurement Recommend patients be collected for this test prior to administration of either drug. Alkaline Phosphatase 76 U/L 38-126 Normal (applies to non-num wiliam results) [facility] can increase Alkaline Phosp le vels up to 2 times the normal adult value. Normal values for children and adolescents are 2 to 3 times the normal adult value. Total Protein 6.0-8.2 Normal (applies to non-numeric re sults) [facility] Albumin Level 3.4-5.0 Normal (applies to non-numeric re sults) [facility] ID Date Data Source [id number] 03/28/2019 05:15:00 PM EST [facility] Name Value Range Interpretation Code Description Data Beti rce(s) Supporting Document(s) Troponin I 0.000-0.056 Normal (applies to non-numeric resu lts) [facility] ID Date Data Source [id number] 03/28/2019 04:59:00 PM EST [facility] Name Value Range Interpretation Code Description Data Beti rce(s) Supporting Document(s) White Blood Count 3.5-10.5 Above high normal [facility] Red Blood Count 4.30-5.70 Normal (applies to non-numeric results) [facility] Hemoglobin 13.5-17.5 Normal (applies to non-numeric resul ts) [facility] Hematocrit 38.8-50.0 Normal (applies to non-numeric resul ts) [facility] Mean Corpuscular Volume 81.2-95.1 Normal (applies to non- numeric results) [facility] Mean Corpuscular Hgb 25.6-32.2 Normal (applies to non-num wiliam results) [facility] Mean Corpuscular Hgb Conc 32.0-36.0 Normal (applies to no n-numeric results) [facility] Red Cell Distribution Width 11.8-15.6 Normal (appli es to non-numeric results) [facility] Platelet Count 314 x10 3/uL 150-450 Normal (applies to non-numeric results) [facility] Mean Platelet Volume 9.4-12.4 Normal (applies to non-num wiliam results) [facility] Neutrophils% (Auto) 31.0-71.0 Normal (applies to non-nume jory results) [facility] Lymphocytes% (Auto) 20.0-55.0 Normal (applies to non-nume jory results) [facility] Monocytes% (Auto) 4.0-12.0 Normal (applies to non-numeri c results) [facility] Eosinophils% (Auto) 1.0-8.0 Normal (applies to non-nume jory results) [facility] Basophils% (Auto) 0.0-2.0 Normal (applies to non-numeri c results) [facility] Immature Granulocytes% (Auto) 0.0-2.0 Normal (dannie lies to non-numeric results) [facility] Neutrophils# (Auto) 1.50-6.20 Above high normal [facility] Lymphocytes# (Auto) 1.20-4.00 Above high normal [facility] Monocytes# (Auto) 0.00-0.90 Above high normal [facility] Eosinophils# (Auto) 0.00-0.50 Normal (applies to non-nume jory results) [facility] Basophils# (Auto) 0.00-0.20 Normal (applies to non-numeri c results) [facility] Immature Granulocytes# (Auto) 0.00-7.00 No rmal (applies to non-numeric results) [facility] Procedure Vital Signs ID Date Data Source UNK Name Value Range Interpretation Code Description Data Source(s) [place] body weight 160 [lb_av] 160 [lb_av] [facility] [place] Body mass index (BMI) [Ratio] 31.0 kg/m2 31.0 k g/m2 [facility] ([facility]) Body weight 210.00 [lb_av] 210.00 [lb_av] [facility] [place] Body height 69 [in_i] 69 [in_i] [facility] ([facility]) 5'9" Respiratory rate 14 /min 14 /min [facility] ( [facility]) Heart rate 76 /min 76 /min [facility] ([facility]) Diastolic blood pressure 75 mm[Hg] 75 mm[Hg] [facility] ([facility]) Systolic blood pressure 120 mm[Hg] 120 mm[Hg] [facility] ([facility]) ID Date Data Source [id number] 04/03/2019 08:20:00 AM EST [place] [facility] Name Value Range Interpretation Code Description Data Source(s) Weight Measurement Method 8 8 [facility] Weight 3360 3360 [facility] pital Temperature Source 1 1 [facility] Temperature 98.1 98.1 [facility] spital Respiratory Effort 1 1 [facility] Respiratory Rate 16 16 [facility] Pulse Assessment Method 4 4 [facility] Pulse Rate 111 111 [facility] pital Height 69 69 [facility] pital Blood Pressure 96/47 96/47 [facility] Weight Measurement Method 8 8 [facility] Weight 3360 3360 [facility] pital Temperature Source 1 1 [facility] Temperature 98.1 98.1 [facility] spital Respiratory Effort 1 1 [facility] Respiratory Rate 16 16 [facility] Pulse Assessment Method 4 4 [facility] Pulse Rate 114 114 [facility] pital Height 69 69 [facility] pital Blood Pressure 103/48 103/48 [facility] Weight Measurement Method 8 8 [facility] Weight 3360 3360 [facility] pital Temperature Source 7 7 [facility] Temperature 99.1 99.1 [facility] spital Respiratory Effort 1 1 [facility] Respiratory Rate 16 16 [facility] Pulse Assessment Method 4 4 [facility] Pulse Rate 134 134 [facility] pital Height 69 69 [facility] pital Blood Pressure 131/76 131/76 [facility]
--- OUTSIDE RECORDS SUMMARY | 2020-03-14 10:29 | CCD | Continuity of Care Document ---
Author Author Jose LEVIN M.D. Organization Unknown Address [address] [place] [address] Phone [phone] Care Team Providers Care Photography Instructor Name Role Phone Shari Mcgee AUTM [phone] Problems Active Problems Provider Date Generalized convulsive epilepsy Layne Levin M.D. Onset: 0 04/06/2019 Other seizures Layne Levin M.D. Onset: 04/06/2019 Migraine with typical aura Layne Levin M.D. Onset: 2019 Social History Type Date Description Comments Sex Unknown Tobacco Use Start: Unknown Patient has never smoked Allergies, Adverse Reactions, Alerts Description No Known Drug Allergies Medications Active Medications SIG Qnty Indications Ordering Provide r Date Divalproex Sodium 250mg Tablets DR 1 by mouth twice a day (In addition to 500 mg bid) 60tabenson Levin M.D. 02/26/2020 Sumatriptan Succinate 100mg Tablet s half or 1 tab by mouth onset of headache, may repeat once after 2 hrs. 9tabenson Levin M.D. 02/06/2020 Divalproex Sodium 500mg Tablets DR 1 po bid. 60tabs Layne Levin M.D. 02/05/2020 Ergocalciferol 1.25mg (65250 Ut) C apsules 1 by mouth once a week. 5caps Layne Levin M.D. 020 History Medications Zonisamide 100mg Capsules 1 by mouth qhs for 1 week, then 2 po qhs for 1 week, then 3 po qhs. 90caps Layne Levin M.D. 01/15/2020 - 02/05/2020 Levetiracetam 1000mg Tablets take one tablet by mouth twice a day maximum daily dose = 2 60tabs Layne Levin M.D. 12/20/2019 - 02/05/2020 Immunizations Description No Information Available Vital Signs Date Vital Result Comment 04/06/2019 10:29am BP Systolic 120 mmHg BP Diastolic 75 mmHg Heart Rate 76 /min Respiratory Rate 14 /min Height 69 inches 5'9" Weight 210.00 lb BMI (Body Mass Index) 31.0 kg/m2 [place] Body Weight 160 lb Results Test Acquired Date Facility Test Result H/L Range Note Notch3 Dna Sequencing Test 12/20/2019 [facility] Notch3 Dna (SEE NOTE) Normal . 1 Notch3 Interpretative Results (SEE NOTE) Normal . 2 Notch3 Comments (SEE NOTE) Normal . 3 Notch3 Methods (SEE NOTE) Normal . 4 Notch3 References (SEE NOTE) Normal . 5 1 . 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 2 . 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 3 . 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 Kamilla Insight pathogenicity assessment NOTCH3 c.2953 C>T is a missense variant classified as pathogenic based on the following information: Variant NOTCH3 c.2953 C>T (p.[id number]) - This variant has not been reported in large, multi-ethnic general populations. - This variant has been identified in at least one individual with clinical features associated with this gene. - At [facility], this variant goodrich s been found in a single case where an alternate explanation for disease was also identified. - ClinVar contains an entry for this cas iant (URL: www.ncbi.nlm.nih.gov/clinvar/; Variation ID: [id number]). - This variant alters a critical locatio n within the protein, and is expected to severely affect function and cause disease. - Greater than 90% of pathogenic mutatio ns identified in NOTCH3 involve the gain or loss of a cysteine residue within the epidermal growth factor (EGF)-like repeat domain. References: Priya S, et al. (2009) Brain 132: 933-9. (PMID: 90925107) Ayana N, et al. (2005) Arch Neurol 62: 1091-4. (PMID: 75611169) Rosangela Faustin, et al. (2004) Brain 127: 2533-9. (PMID: 50572292) Laurel Friedman et al. (2001) Lancet 358: 2049-51. (PMID: 13353055) Laurel Friedman et al. (1997) Lancet 350: 1511-5. (PMID: 5725347) Genome Aggregation Database ([employer]), [place], [place] (URL: [email or web address]) Recommendations: This individual's family members are at risk for possessing or inheriting this variant. Careful reconciliation of this molecular data with this individual's clinical presentation, family history, and other laboratory results, in conjunction with genetic counseling, is highly recommended. Health care providers, please contact the [facility] Client Services Department at if you wish to consult with a Fore[employer]ure or a Genetic Counselor regarding this test [...] EGF motifs. NOTCH3 gene information: RODNEY ID: *[id number]; Chromosome Location: 19p13.12; NCBI Reference Sequence: NM_00 0435.2; In the cDNA, the initiator codon, ATG (methionine), is designated as codon number 1 and the "A" is designated as nucleotide +1. The initiator codon is located in exon 1 and all subsequent numbering is sequential. Phenotype information: RODNEY ID: #[id number] for cerebral arteriopathy, autosomal dominant, with subcortical infarcts and leukoencephalopathy; CADASIL 4 . DNA sequencing was performed using advanced [...] GRCh37/hg19 genomic build and use of the [employer] Analysis Toolkit 2.3-9 for variant detection. A [...] are difficult to sequence using advanced sequencing, [place] sequencing of PCR-amplified target regions (using bi-directional [...] Furthermore, allele dropout cannot be detected in Alejandra sequenced regions. Additionally, this test will not [...] variant(s) identified reflect the current state of [facility] understanding at the time of this report. [...] or our Family Insight Program, please call [facility] at [phone] to speak to a genetic counselor or laboratory apparatus glass blower, or visit [email or web address]. For patients who are interested in sharing de-identified genetic and health information to improve understanding of genetics and health, please visit [email or web address]. GenomeConnect is an online registry designed by the Clinical Genome Resource ([employer]) and is not affiliated with [employer] 5 . 1. Sb Jasmine, et al. (2013) J Clin Jonas rosci 20: 322-3. (PMID: 50353549) 2. RANDY Shepard, et al. (2013) J Chin Med Assoc 76: 319-24. (PMID: 37352088) 3. Priscila-Laurie M, et al. (2009) Bra in 132: 1601-12. (PMID: 27394276) 4. Priya S, et al. (2009) Brain 132: 9 33-9. (PMID: 59847524) 5. Anish S, et al. (2013) J Clin A esthet Dermatol 6: 29-33. (PMID: 28975843) 6. Subhash Pabon, et al. (2012) PLoS One 7: e 88644. (PMID: 40005594) This test was developed and its analytical performance characteristics have been determined by [facility]. It has not been cleared or approved by the U.S. Food and Drug Administration. This assay has been validated pursuant to the CLIA regulations and is used for clinical purposes. Performed at: [facility] [address] [place] [id number] Director Of Curriculum And Instruction: Clay Honeycutt PhD, Phone: [phone] Procedures Date Code Description Status 01/30/2020 22842 Magnetic Resonance Angiography N starr W/O Contrast Materials Completed 01/30/2020 42736 Magnetic Resonance Angiography N starr W/O Contrast Materials Completed 01/30/2020 44390 Magnetic Resonance Angiogtaphy H ead W/O Contrast Material(S) Completed 01/30/2020 02682 Magnetic Resonance Angiogtaphy H ead W/O Contrast Material(S) Completed 10/02/2019 32757 EEG Recording Awake & Asleep Com pleted 10/02/2019 27081 EEG Recording Awake & Asleep Com pleted Medical Devices Description No Information Available Encounters Type Date Location Provider Dx Diagnosis Office Visit 02/26/2020 3:30p [place] G40.309 Gen idiopathic epilepsy, not intractable, 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 02/26/2020 G43.109 Migraine with aura, not intractable, without status migrainosus Layne Levin M.D. 01/30/2020 R47.81 Slurred speech Rai Hale 01/30/2020 R47.81 Slurred speech MRI 01/30/2020 R20.0 Anesthesia of skin Evelio Do M.D. 01/30/2020 R20.0 Anesthesia of skin MRI 12/20/2019 G40.89 Other seizures Layne Levin M.D. 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 12/20/2019 G43.109 Migraine with aura, not intractable, without status migrainosus Layne Levin M.D. 10/02/2019 G40.89 Other seizures Tavo Bennett 10/02/2019 G40.89 Other seizures EEG Plan of Treatment Future Appointment(s):* 05/21/2020 1:30 pm - Layne Levin M.D. at Main office - [place] Functional Status Description No Information Available Mental Status Description No Information Available Referrals Refer to Dr Reason for Referral Status Appt Date Layne Levin M.D. Created [facility] [address] [place], [place] [id number] [phone] Layne Levin M.D. Created [facility] [address] [place] [address] [phone]
--- OUTSIDE RECORDS SUMMARY | 2020-03-14 10:29 | CCD | Continuity of Care Document ---
Author Author Jose LEVIN M.D. Organization Unknown Address [address] [place] [address] Phone [phone] Care Team Providers Care Service Delivery Manager Name Role Phone Shari Mcgee AUTM [phone] Problems Active Problems Provider Date Generalized convulsive [...] 60tabs Layne Levin M.D. 02/05/2020 Ergocalciferol 1.25mg (79747 Ut) C apsules 1 by mouth once [...] lb BMI (Body Mass Index) 31.0 kg/m2 [place] Body Weight 160 lb Results Test Acquired Date Facility Test Result H/L Range Note Notch3 Dna Sequencing Test 12/20/2019 [facility] Notch3 Dna (SEE NOTE) Normal . 1 Notch3 Interpretative Results (SEE NOTE) Normal . 2 Notch3 Comments (SEE NOTE) Normal . 3 Notch3 Methods (SEE NOTE) Normal . 4 Notch3 References (SEE NOTE) Normal . 5 1 . 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 2 . 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 [...] the following information: Variant NOTCH3 c.2953 C>T (p.Axq519Bhc) - This variant has not been reported in large, multi-ethnic general populations. - This variant has been identified in at least one individual with clinical features associated with this gene. - At [facility], this variant goodrich s been found in a single case where an alternate explanation for disease was also identified. - ClinVar contains an entry for this cas iant (URL: www.ncbi.nlm.nih.gov/clinvar/; Variation ID: [id number]). - This variant alters a critical locatio n within the protein, and is expected to severely affect function and cause disease. - Greater than 90% of pathogenic mutatio ns identified in NOTCH3 involve the gain or loss of a cysteine residue within the epidermal growth factor (EGF)-like repeat domain. References: Priya S, et al. (2009) Brain 132: 933-9. (PMID: 84315926) Ayana N, et al. (2005) Arch Neurol 62: 1091-4. (PMID: 59485517) Rosangela Faustin, et al. (2004) Brain 127: 2533-9. (PMID: 89049308) Laurel Friedman et al. (2001) Lancet 358: 2049-51. (PMID: 05876531) Laurel Friedman et al. (1997) Lancet 350: 1511-5. (PMID: 4992762) Genome Aggregation Database ([employer]), [place], [place] (URL: [email or web address] [email or web address]) Recommendations: This individual's family members are at risk for possessing or inheriting this variant. Careful reconciliation of this molecular data with this individual's clinical presentation, family history, and other laboratory results, in conjunction with genetic counseling, is highly recommended. Health care providers, please contact the [facility] Client Services Department at if you wish to consult with a Solar Resource Assessor or a Genetic Counselor regarding this test [...] EGF motifs. NOTCH3 gene information: RODNEY ID: *[id number]; Chromosome Location: 19p13.12; NCBI Reference Sequence: NM_00 0435.2; In the cDNA, the initiator codon, ATG (methionine), is designated as codon number 1 and the "A" is designated as nucleotide +1. The initiator codon is located in exon 1 and all subsequent numbering is sequential. Phenotype information: RODNEY ID: #[id number] for cerebral arteriopathy, autosomal dominant, with subcortical [...] GRCh37/hg19 genomic build and use of the [employer] Analysis Toolkit 2.3-9 for variant detection. A [...] are difficult to sequence using advanced sequencing, [place] sequencing of PCR-amplified target regions (using bi-directional [...] variant(s) identified reflect the current state of [facility] understanding at the time of this [...] or our Family Insight Program, please call [facility] at [phone] to speak to a genetic counselor or cytology laboratory manager, or visit [email or web address]. For patients who are interested in sharing de-identified genetic and health information to improve understanding of genetics and health, please visit [email or web address]. GenomeConnect is an online registry designed by the Clinical Genome Resource ([employer]) and is not affiliated with [employer]). 5 . 1. Sb Jasmine, et al. (2013) J Clin Jonas rosci 20: 322-3. (PMID: 11993138) 2. RANDY Shepard, et al. (2013) J Chin Med Assoc 76: 319-24. (PMID: 73643294) 3. Priscila-Laurie M, et al. (2009) Bra in 132: 1601-12. (PMID: 51857637) 4. Priya S, et al. (2009) Brain 132: 9 33-9. (PMID: 82669610) 5. Anish S, et al. (2013) J Clin A esthet Dermatol 6: 29-33. (PMID: 60875387) 6. Subhash Pabon, et al. (2012) PLoS One 7: e 99805. (PMID: 02123696) This test was developed and its analytical performance characteristics have been determined by [facility]. It has not been cleared or approved by the U.S. Food and Drug Administration. This assay has been validated pursuant to the CLIA regulations and is used for clinical purposes. Performed at: [facility] [address] [place] [id number] Service Agent: Clay Honeycutt PhD, Phone: [phone] Procedures Date Code Description Status 01/30/2020 70942 Magnetic Resonance Angiography N starr W/O Contrast Materials Completed 01/30/2020 78599 Magnetic Resonance Angiography N starr W/O Contrast Materials Completed 01/30/2020 15360 Magnetic Resonance Angiogtaphy H ead W/O Contrast Material(S) Completed 01/30/2020 93163 Magnetic Resonance Angiogtaphy H ead W/O Contrast Material(S) Completed 10/02/2019 49235 EEG Recording Awake & Asleep Com pleted 10/02/2019 75258 EEG Recording Awake & Asleep Com pleted Medical Devices Description No Information Available Encounters Type Date Location Provider Dx Diagnosis Office Visit 12/20/2019 11:00a Main office - [place] G40.89 Other seizures G40.309 Gen idiopathic epilepsy, [...] Layne Levin M.D. at Main office - [place] Functional Status Description No Information Available Mental Status Description No Information Available Referrals Refer to Dr Reason for Referral Status Appt Date Layne Levin M.D. Created [facility] [address] [place] [address] [phone] Layne Levin M.D. Created [facility] [address] [place] [address] [phone]
[2020-03-14] MEDS ORDERED: ONDANSETRON 4MG/2ML VIAL IV ONE (10:30)
[2020-03-14 10:31] LABS: BASO # 0.1 10^3/uL (0.0-0.2); EOS # 0.6 10^3/uL (0.0-0.5); EOS % 5.1 % (0.0-3.0); HEMATOCRIT 47.3 % (42.0-52.0); HEMOGLOBIN 16.6 g/dl (13.5-17.5); LYMPH # 1.8 10^3/uL (1.5-5.0); LYMPH % 16.7 % (24.0-44.0); MEAN CORPUSCULAR HGB CONC 35.1 g/dl (32.0-36.5); MEAN CORPUSCULAR VOLUME 88.2 fl (80.0-96.0); MONO # 0.9 10^3/uL (0.0-0.8); MONO % 8.3 % (0.0-5.0); NEUTROPHILS # 7.2 10^3/uL (1.5-8.5); NEUTROPHILS % 65.6 % (36.0-66.0); PLATELET COUNT, AUTOMATED 205 10^3/uL (150-450); RED BLOOD COUNT 5.36 10^6/uL (4.30-6.10)
[2020-03-14] MEDS ORDERED: DIVALPROEX 250 MG TAB PO ONE (10:45)
[2020-03-14] MEDS ORDERED: DIVALPROEX 250MG *ER* TAB PO ONE (10:45)
[2020-03-14 11:06] LABS: BLOOD UREA NITROGEN 16 MG/DL (7-18); CALCIUM LEVEL 9.5 MG/DL (8.5-10.1); CARBON DIOXIDE LEVEL 23 MEQ/L (21-32); CHLORIDE LEVEL 105 MEQ/L (98-107); CREATININE FOR GFR 1.17 MG/DL (0.70-1.30); GLOMERULAR FILTRATION RATE > 60.0 (>60); GLUCOSE, FASTING 97 MG/DL (70-100); POTASSIUM SERUM 4.6 MEQ/L (3.5-5.1); SODIUM LEVEL 139 MEQ/L (136-145); VALPROIC ACID (DEPAKOTE) 75.7 UG/ML (50.0-100.0)
[2020-03-14] MEDS ORDERED: levETIRAcetam 250MG TABLET (KEPPRA) PO ONE (11:45)
[2020-03-14 12:10] VITALS: BP 125/57
--- NOTE | 2020-03-14 14:13 | ECGEPIP ---
[facility] - ED Test Date: 2020-03-14 Pat Name: DAMION LAURENT Department: Room: - Gender: Male Software Quality Engineer: GINGER : 1995 Requested By: RONEN CHEEK Order Number: [id number] Reading MD: Brennon Douglas Measurements Intervals [place] Rate: 125 P: 18 ND: 175 QRS: 1 QRSD: 82 T: 28 QT: 278 QTc: 402 Interpretive Statements SINUS TACHYCARDIA Nonspecific ST-T wave abnormalities Comparison tracing not on file Electronically Signed on 03-14-2020 14:13:44 EST by Brennon Douglas
== END 2020-03-14 12:26 | disposition home or self-care (01) ==
LOC: M ED 09:46 → EDBD 09:46 → M ED 12:26
DX: G40.309 Generalized idiopathic epilepsy and epileptic syndromes, not intractable, without status epilepticus (principal); Z79.899 Other long term (current) drug therapy
CPT/HCPCS: 80048; 80164; 80180; 85025; 93005; 93041; 94760; 96374; 99285; J2405

== ENCOUNTER 2020-07-09 18:49 | Emergency (ER) | payer OTHER ==
[~2020-07-09] VITALS: Ht 175.3 cm; Wt 114.7 kg
[2020-07-09] MEDS ORDERED: SUMA100T2 PO (19:07)
[2020-07-09] MEDS ORDERED: KEPP10002 PO (19:07)
[2020-07-09] MEDS ORDERED: ASPI81CH33 PO (19:07)
[2020-07-09] MEDS ORDERED: COQ-100C5 PO (19:07)
[2020-07-09] MEDS ORDERED: NS 1,000 ML IV ONE (19:40)
[2020-07-09 20:16] LABS: BASO # 0.1 10^3/uL (0.0-0.2); BASO % 0.9 % (0.0-1.0); EOS # 0.3 10^3/uL (0.0-0.5); EOS % 4.7 % (0.0-3.0); HEMATOCRIT 45.6 % (42.0-52.0); HEMOGLOBIN 15.8 g/dl (13.5-17.5); LYMPH # 1.5 10^3/uL (1.5-5.0); LYMPH % 21.8 % (24.0-44.0); MEAN CORPUSCULAR HEMOGLOBIN 30.6 pg (27.0-33.0); MEAN CORPUSCULAR HGB CONC 34.6 g/dl (32.0-36.5); MEAN CORPUSCULAR VOLUME 88.4 fl (80.0-96.0); MONO # 0.8 10^3/uL (0.0-0.8); MONO % 11.5 % (2.0-8.0); NEUTROPHILS # 4.2 10^3/uL (1.5-8.5); NEUTROPHILS % 60.1 % (36.0-66.0); PLATELET COUNT, AUTOMATED 226 10^3/uL (150-450); RED BLOOD COUNT 5.16 10^6/uL (4.30-6.10)
[2020-07-09 20:24] LABS: BLOOD UREA NITROGEN 15 MG/DL (7-18); CALCIUM LEVEL 9.4 MG/DL (8.5-10.1); CARBON DIOXIDE LEVEL 30 MEQ/L (21-32); CHLORIDE LEVEL 104 MEQ/L (98-107); CREATININE FOR GFR 0.89 MG/DL (0.70-1.30); GLOMERULAR FILTRATION RATE > 60.0 (>60); GLUCOSE, FASTING 113 MG/DL (70-100); POTASSIUM SERUM 4.2 MEQ/L (3.5-5.1); SODIUM LEVEL 139 MEQ/L (136-145); VALPROIC ACID (DEPAKOTE) 59.7 UG/ML (50.0-100.0)
[2020-07-09] MEDS ORDERED: KETOROLAC 30 MG/ML 1ML VIAL IV ONE (21:25)
[2020-07-09 22:09] VITALS: BP 149/67
== END 2020-07-09 22:18 | disposition home or self-care (01) ==
LOC: M ED 18:49
DX: R51.9 Headache, unspecified (principal); H53.8 Other visual disturbances; R53.83 Other fatigue; R20.2 Paresthesia of skin; R56.9 Unspecified convulsions; Z79.899 Other long term (current) drug therapy
CPT/HCPCS: 80048; 80164; 80180; 85025; 96361; 96374; 99284; J1885

== ENCOUNTER 2020-07-17 10:38 | Emergency (ER) | payer OTHER ==
[~2020-07-17] VITALS: Ht 175.3 cm; Wt 113.2 kg
[~2020-07-17 10:38] MED LIST changes: +ASPI81CH33 PO; +COQ-100C5 PO; +KEPP10002 PO
[2020-07-17] MEDS ORDERED: METOCLOPRAMIDE INJ 10MG/2ML VIAL (J2765 PER 1) IV ONE (12:20)
[2020-07-17] MEDS ORDERED: diphenhydrAMINE 50MG/ML VIAL (J1200) IV ONE (12:20)
[2020-07-17] MEDS ORDERED: MORPHINE 4 MG/ML 1ML VIAL/SYRINGE (J2270) IV ONE (12:20)
[2020-07-17] MEDS ORDERED: NS 1,000 ML IV ONE (12:20)
--- NOTE | 2020-07-17 12:44 | REP ---
INDICATION: migraine x9 days, intermittent tingling sensations COMPARISON: 08/12/2019 TECHNIQUE: Axial noncontrast images from the skull base to the vertex with coronal reformations. This CT examination was performed using the following dose reduction techniques: Automated exposure control, adjustment of mA and/or kv according to the patient's size, and use of iterative reconstruction technique. FINDINGS: The ventricles, sulci, and cisterns are normal in position and appearance. Edwards-white differentiation is maintained. No acute intracranial hemorrhage, mass/mass effect, pathology or trauma/injury. No evidence for acute infarction. No extra-axial fluid collection. Calvarium is intact. Paranasal sinuses and mastoid air cells are clear. IMPRESSION: Normal noncontrast head CT. No evidence for acute intracranial pathology or trauma/injury. <Electronically signed by Emerson Parmar > 07/17/20 2642
[2020-07-17 13:40] LABS: BASO # 0.1 10^3/uL (0.0-0.2); BASO % 0.7 % (0.0-1.0); EOS # 0.3 10^3/uL (0.0-0.5); EOS % 3.6 % (0.0-3.0); HEMATOCRIT 48.3 % (42.0-52.0); HEMOGLOBIN 16.6 g/dl (13.5-17.5); LYMPH # 1.8 10^3/uL (1.5-5.0); LYMPH % 21.2 % (24.0-44.0); MEAN CORPUSCULAR HEMOGLOBIN 30.9 pg (27.0-33.0); MEAN CORPUSCULAR HGB CONC 34.4 g/dl (32.0-36.5); MEAN CORPUSCULAR VOLUME 89.8 fl (80.0-96.0); MONO # 0.8 10^3/uL (0.0-0.8); MONO % 9.3 % (2.0-8.0); NEUTROPHILS # 5.5 10^3/uL (1.5-8.5); NEUTROPHILS % 64.4 % (36.0-66.0); PLATELET COUNT, AUTOMATED 235 10^3/uL (150-450); RED BLOOD COUNT 5.38 10^6/uL (4.30-6.10); WHITE BLOOD COUNT 8.6 10^3/uL (4.0-10.0)
[2020-07-17 14:02] LABS: ALBUMIN 4.4 GM/DL (3.2-5.2); ALT/SGPT 136 U/L (12-78); BILIRUBIN,TOTAL 1.2 MG/DL (0.2-1.0); BLOOD UREA NITROGEN 14 MG/DL (7-18); CARBON DIOXIDE LEVEL 28 MEQ/L (21-32); CHLORIDE LEVEL 105 MEQ/L (98-107); CK-MB VALUE MASS < 1.0 NG/ML (<3.6); CPK CREATINE PHOSPHOKINASE 107 U/L (39-308); CREATININE FOR GFR 0.91 MG/DL (0.70-1.30); GLOMERULAR FILTRATION RATE > 60.0 (>60); GLUCOSE, FASTING 95 MG/DL (70-100); MB/CK RELATIVE INDEX 0.93 (< OR =4); POTASSIUM SERUM 4.6 MEQ/L (3.5-5.1); SODIUM LEVEL 140 MEQ/L (136-145); TOTAL PROTEIN 7.7 GM/DL (6.4-8.2); TROPONIN I < 0.02 NG/ML (< 0.10); VALPROIC ACID (DEPAKOTE) 95.4 UG/ML (50.0-100.0)
[2020-07-17 15:04] LABS: APPEARANCE, URINE CLEAR (CLEAR); BACTERIA, URINE AUTO NEGATIVE (NEGATIVE); BILIRUBIN, URINE AUTO NEGATIVE (NEGATIVE); BLOOD, URINE BLOOD 1+ (NEGATIVE); COLOR, URINE YELLOW (YELLOW); GLUCOSE, URINE (UA) AUTO NEGATIVE (NEGATIVE); KETONE, URINE AUTO NEGATIVE (NEGATIVE); LEUKOCYTE ESTERASE, URINE AUTO NEGATIVE (NEGATIVE); NITRITE, URINE AUTO NEGATIVE (NEGATIVE); PROTEIN, URINE AUTO 1+ mg/dL (NEGATIVE); RBC, URINE AUTO 2 /HPF (0-3); SPECIFIC GRAVITY URINE AUTO 1.011 (1.002-1.035); SQUAMOUS EPITHELIAL CELL UR AU 0 /HPF (0-6); UROBILINOGEN, URINE AUTO 0.2 mg/dL (0.0-2.0); WBC, URINE AUTO 0 /HPF (0-3)
[2020-07-17 15:19] LABS: AMPHETAMINES LEVEL URINE NEGATIVE (NEGATIVE); BARBITURATES URINE NEGATIVE (NEGATIVE); BENZODIAZEPINES URINE NEGATIVE (NEGATIVE); CANNABINOIDS URINE NEGATIVE (NEGATIVE); COCAINE METABOLITE URINE NEGATIVE (NEGATIVE); METHADONE URINE NEGATIVE (NEGATIVE); OPIATES URINE POSITIVE (NEGATIVE); PHENCYCLIDINE URINE NEGATIVE (NEGATIVE)
--- NOTE | 2020-07-17 15:44 | REP ---
INDICATION: migraines, h/o cadasil. COMPARISON: Comparison CT study of the brain is from earlier on this date. There is also a comparison CT study from August 12, 2019.. TECHNIQUE: Axial and sagittal imaging planes are utilized for T1 and T2-weighted scans. Sequences include spin-echo, fast spin echo, FLAIR, and diffusion weighted sequences. FINDINGS: No bony calvarial lesion is seen. Craniocervical junction and upper cervical cord are normal in appearance. There is no MR evidence of significant paranasal sinus disease. No intraorbital abnormality is seen. The lateral, third, and fourth ventricles are normal in size and position. Edwards-white differentiation pattern is intact above and below the tentorium. There is no evidence of intracranial hemorrhage. No mass, infarction, extra-axial fluid collection or midline shift is seen. FLAIR and turbo spin echo T2 weighted scans demonstrate 2 or 3 tiny foci of T2 hyperintensity in the subcortical white matter of the posterior frontal lobes bilaterally. The these are nonspecific. No other abnormal white matter lesion is seen. Diffusion-weighted scans show no evidence of restricted diffusion to suggest acute ischemia.. IMPRESSION: Two or 3 tiny subcortical white matter foci of T2 hyperintensity in the frontal lobes bilaterally. These are nonspecific but can be seen in migraine patients. Demyelinating disease unlikely. There is no evidence of acute or old lacunar infarct, hemorrhage, or mass.. <Electronically signed by Óscar Shah > 07/17/20 7588
[2020-07-17] MEDS ORDERED: AMIT10TA7 PO (16:42)
[2020-07-17 16:57] VITALS: BP 133/76
== END 2020-07-17 16:59 | disposition home or self-care (01) ==
LOC: M ED 10:38
DX: G43.909 Migraine, unspecified, not intractable, without status migrainosus (principal); R74.01 Elevation of levels of liver transaminase levels; G40.909 Epilepsy, unspecified, not intractable, without status epilepticus; Z79.82 Long term (current) use of aspirin; Z79.899 Other long term (current) drug therapy; Z82.0 Family history of epilepsy and other diseases of the nervous system; Z82.49 Family history of ischemic heart disease and other diseases of the circulatory system
CPT/HCPCS: 70450; 70551; 80053; 80164; 80180; 80307; 81001; 82550; 82553; 85025; 93041; 96374; 96375; 99284; J1200; J2270; J2765

== ENCOUNTER 2020-10-14 08:38 | Emergency (ER) | payer OTHER ==
[~2020-10-14] VITALS: Ht 175.3 cm; Wt 112.1 kg
[~2020-10-14 08:38] MED LIST changes: +AMIT10TA7 PO; +ERGO500029 PO; -VITA50005 PO
[2020-10-14] MEDS ORDERED: KETOROLAC 30 MG/ML 1ML VIAL IV ONE (09:40)
[2020-10-14] MEDS ORDERED: METOCLOPRAMIDE INJ 10MG/2ML VIAL (J2765 PER 1) IV ONE (09:40)
[2020-10-14] MEDS ORDERED: ISOVUE-370 76% 100ML VIAL As Ordered ONE (12:26)
--- NOTE | 2020-10-14 12:51 | REP ---
INDICATION: paraesthesias/TIA COMPARISON: 07/17/2020 TECHNIQUE: Axial noncontrast images from the skull base to the vertex with coronal reformations. This CT examination was performed using the following dose reduction techniques: Automated exposure control, adjustment of mA and/or kv according to the patient's size, and use of iterative reconstruction technique. FINDINGS: The ventricles, sulci, and cisterns are normal in position and appearance. Edwards-white differentiation is maintained. No acute intracranial hemorrhage, mass/mass effect, pathology or trauma/injury. No evidence for acute infarction. No extra-axial fluid collection. Calvarium is intact. Paranasal sinuses and mastoid air cells are clear. IMPRESSION: Normal noncontrast head CT. No evidence for acute intracranial pathology or trauma/injury. <Electronically signed by Emerson Parmar > 10/14/20 [id number]
--- NOTE | 2020-10-14 12:53 | REP ---
INDICATION: paraesthesias/TIA. COMPARISON: None. TECHNIQUE: CT contrast dose: 100 ml of intravenous Isovue 370. Axial contrast-enhanced images were obtained from the skull base to the vertex with coronal reformations using 100 cc Isovue 370 intravenous contrast material. Maximal intensity projection and multiplanar re-formation images along with 3-D rendered imaging of the arterial vasculature. FINDINGS: The [id number] and visualized vertebrobasilar system appear intact and normal. Vasculature to the bilateral hemispheres appear symmetric. No obvious arteriovenous malformation or aneurysm detected. Remainder of the examination appears essentially normal. IMPRESSION: Normal CT angiography of the head. No obvious arteriovenous malformation or aneurysm. Vasculature to the bilateral hemispheres and posterior fossa appear symmetric. <Electronically signed by Emerson Parmar > 10/14/20 [id number]
--- NOTE | 2020-10-14 12:55 | REP ---
INDICATION: paraesthesias/TIA. COMPARISON: None. TECHNIQUE: Axial contrast-enhanced images were obtained from the thoracic inlet to the skull base with coronal and sagittal reformations using 100 cc Isovue 370 intravenous contrast material. Maximal intensity projection and multiplanar re-formation images along with 3-D rendered imaging of the arterial vasculature. This CT examination was performed using the following dose reduction techniques: Automated exposure control, adjustment of mA and/or kv according to the patient's size, and the use of iterative reconstruction technique. FINDINGS: The common carotid arteries, carotid bulbs and visualized portions of the external and the internal carotid arteries are normal. The vertebral arteries are patent. There are no atherosclerotic lesions, areas of significant stenosis or occlusion identified. No obvious vascular abnormality noted.. IMPRESSION: Normal CT angiography of the neck <Electronically signed by Emerson Parmar > 10/14/20 3582
[2020-10-14 13:43] VITALS: BP 129/71
== END 2020-10-14 13:50 | disposition home or self-care (01) ==
LOC: M ED 08:38
DX: G43.909 Migraine, unspecified, not intractable, without status migrainosus (principal); R20.2 Paresthesia of skin; R56.9 Unspecified convulsions; Z79.82 Long term (current) use of aspirin; Z79.899 Other long term (current) drug therapy
CPT/HCPCS: 70450; 70496; 70498; 80047; 96374; 96375; 99284; J1885; J2765; Q9967

== ENCOUNTER → 2021-07-04 | Outpatient (CLI) | payer OTHER ==
[2021-07-04 12:09] LABS: BASO # 0.1 10^3/uL (0.0-0.2); EOS # 0.3 10^3/uL (0.0-0.5); EOS % 4.5 % (0.0-3.0); HEMATOCRIT 45.2 % (42.0-52.0); HEMOGLOBIN 15.7 g/dl (13.5-17.5); LYMPH # 1.7 10^3/uL (1.5-5.0); LYMPH % 26.8 % (24.0-44.0); MEAN CORPUSCULAR HEMOGLOBIN 30.9 pg (27.0-33.0); MEAN CORPUSCULAR HGB CONC 34.7 g/dl (32.0-36.5); MONO # 0.5 10^3/uL (0.0-0.8); MONO % 8.1 % (2.0-8.0); NEUTROPHILS # 3.6 10^3/uL (1.5-8.5); NEUTROPHILS % 58.5 % (36.0-66.0); PLATELET COUNT, AUTOMATED 237 10^3/uL (150-450); RED BLOOD COUNT 5.08 10^6/uL (4.30-6.10); WHITE BLOOD COUNT 6.2 10^3/uL (4.0-10.0)
[2021-07-04 12:32] LABS: ALBUMIN 4.1 GM/DL (3.2-5.2); ALT/SGPT 85 U/L (12-78); BILIRUBIN,TOTAL 1.4 MG/DL (0.2-1.0); BLOOD UREA NITROGEN 11 MG/DL (7-18); CARBON DIOXIDE LEVEL 29 MEQ/L (21-32); CHLORIDE LEVEL 102 MEQ/L (98-107); CREATININE FOR GFR 1.06 MG/DL (0.70-1.30); GLOMERULAR FILTRATION RATE > 60.0 (>60); GLUCOSE, FASTING 288 MG/DL (70-100); POTASSIUM SERUM 4.8 MEQ/L (3.5-5.1); SODIUM LEVEL 138 MEQ/L (136-145); TOTAL PROTEIN 7.7 GM/DL (6.4-8.2); VALPROIC ACID (DEPAKOTE) 82.1 UG/ML (50.0-100.0)
[2021-07-04 12:40] LABS: TOTAL 25(OH) VITAMIN D 7.6 NG/ML (30.0-100.0); VITAMIN B12 LEVEL 396 PG/ML
== END ==
LOC: M LAB 11:26
PROVIDERS: ATTEND Psychiatry & Neurology Neurology
DX: R51.9 Headache, unspecified (principal); R56.9 Unspecified convulsions; R25.1 Tremor, unspecified

== ENCOUNTER 2021-09-28 11:16 | Emergency (ER) | payer OTHER ==
[~2021-09-28] VITALS: Ht 175.3 cm; Wt 109.0 kg
[2021-09-28 11:17] VITALS: BP 116/58
== END 2021-09-28 14:09 | disposition left against medical advice (07) ==
LOC: M ED 11:16
DX: Z53.21 Procedure and treatment not carried out due to patient leaving prior to being seen by health care provider (principal)

== ENCOUNTER 2021-09-30 18:40 | Emergency (ER) | payer OTHER ==
[~2021-09-30] VITALS: Ht 175.3 cm; Wt 111.2 kg
[~2021-09-30 18:40] MED LIST changes: -AMIT50TA; -METF-839 PO; -ONDA4TAB6; -PROP20TA72; -RIZA5TAB52
[2021-09-30] MEDS ORDERED: AMIT50TA (18:52)
[2021-09-30] MEDS ORDERED: ONDA4TAB6 (18:52)
[2021-09-30] MEDS ORDERED: PROP20TA72 (18:52)
[2021-09-30] MEDS ORDERED: RIZA5TAB52 (18:52)
[2021-09-30] MEDS ORDERED: NS 1,000 ML IV ONE (20:05)
[2021-09-30 20:20] LABS: VENOUS BASE EXCESS -1.8 (-2.0-2.0); VENOUS O2 SATURATION 91.3 % (60.0-80.0); VENOUS PARTIAL PRESSURE CO2 39.6 mmHg (38.0-50.0); VENOUS PARTIAL PRESSURE O2 60.7 mmHg (30.0-50.0); VENOUS PH 7.382 UNITS (7.330-7.430); VENOUS STANDARD HCO3 22.8 MEQ/L; VENOUS TOTAL CO2 24.2 MEQ/L (24.0-28.0)
[2021-09-30 20:50] LABS: BASO # 0.1 10^3/uL (0.0-0.2); BASO % 0.9 % (0.0-1.0); EOS # 0.3 10^3/uL (0.0-0.5); EOS % 4.5 % (0.0-3.0); HEMATOCRIT 41.1 % (42.0-52.0); HEMOGLOBIN 14.7 g/dl (13.5-17.5); LYMPH # 2.1 10^3/uL (1.5-5.0); LYMPH % 35.5 % (24.0-44.0); MEAN CORPUSCULAR HGB CONC 35.8 g/dl (32.0-36.5); MEAN CORPUSCULAR VOLUME 89.3 fl (80.0-96.0); MONO # 0.5 10^3/uL (0.0-0.8); NEUTROPHILS # 2.9 10^3/uL (1.5-8.5); NEUTROPHILS % 50.6 % (36.0-66.0); PLATELET COUNT, AUTOMATED 232 10^3/uL (150-450); WHITE BLOOD COUNT 5.8 10^3/uL (4.0-10.0)
[2021-09-30 21:03] LABS: HEMOGLOBIN A1c 8.4 %
[2021-09-30 21:43] LABS: ALBUMIN 3.8 GM/DL (3.2-5.2); ALT/SGPT 90 U/L (12-78); BILIRUBIN,DIRECT 0.2 MG/DL (0.0-0.2); BILIRUBIN,TOTAL 1.1 MG/DL (0.2-1.0); LIPASE 175 U/L (73-393); TOTAL PROTEIN 7.4 GM/DL (6.4-8.2)
[2021-09-30 21:44] VITALS: BP 133/68
[2021-09-30 21:57] LABS: OSMOLALITY SERUM 295 MOSM/KG (275-295)
[2021-09-30] MEDS ORDERED: METF-839 PO (22:09)
[2021-09-30 23:03] LABS: BLOOD UREA NITROGEN 13 MG/DL (7-18); CALCIUM LEVEL 9.5 MG/DL (8.5-10.1); CARBON DIOXIDE LEVEL 25 MEQ/L (21-32); CHLORIDE LEVEL 99 MEQ/L (98-107); CREATININE FOR GFR 0.81 MG/DL (0.70-1.30); FREE THYROXINE INDEX 3.5 % (1.4-3.8); GLOMERULAR FILTRATION RATE > 60.0 (>60); GLUCOSE, FASTING 282 MG/DL (70-100); SODIUM LEVEL 135 MEQ/L (136-145); T UPTAKE 33 % (33-40); THYROXINE (T4) 10.5 UG/DL (4.5-12.0)
== END 2021-09-30 22:27 | disposition home or self-care (01) ==
LOC: M ED 18:40
DX: E11.65 Type 2 diabetes mellitus with hyperglycemia (principal); G40.911 Epilepsy, unspecified, intractable, with status epilepticus; Z79.4 Long term (current) use of insulin; Z79.52 Long term (current) use of systemic steroids; Z79.899 Other long term (current) drug therapy

== ENCOUNTER → 2021-09-30 | Outpatient (CLI) | payer OTHER ==
[~2021-09-30] MED LIST changes: +AMIT50TA; +METF-839 PO; +ONDA4TAB6; +PROP20TA72; +RIZA5TAB52
[2021-09-30 15:05] LABS: HEMATOCRIT 42.5 % (42.0-52.0); HEMOGLOBIN 14.6 g/dl (13.5-17.5); MEAN CORPUSCULAR HEMOGLOBIN 30.8 pg (27.0-33.0); MEAN CORPUSCULAR HGB CONC 34.4 g/dl (32.0-36.5); MEAN CORPUSCULAR VOLUME 89.7 fl (80.0-96.0); PLATELET COUNT, AUTOMATED 227 10^3/uL (150-450); RED BLOOD COUNT 4.74 10^6/uL (4.30-6.10); WHITE BLOOD COUNT 5.1 10^3/uL (4.0-10.0)
[2021-09-30 15:56] LABS: ALT/SGPT 91 U/L (12-78); BILIRUBIN,TOTAL 1.1 MG/DL (0.2-1.0); BLOOD UREA NITROGEN 9 MG/DL (7-18); CALCIUM LEVEL 9.4 MG/DL (8.5-10.1); CARBON DIOXIDE LEVEL 30 MEQ/L (21-32); CHLORIDE LEVEL 101 MEQ/L (98-107); GLOMERULAR FILTRATION RATE > 60.0 (>60); GLUCOSE, FASTING 228 MG/DL (70-100); POTASSIUM SERUM 4.4 MEQ/L (3.5-5.1); SODIUM LEVEL 137 MEQ/L (136-145); TOTAL PROTEIN 7.4 GM/DL (6.4-8.2)
[2021-09-30 19:44] LABS: HEMOGLOBIN A1c 8.2 %
== END ==
LOC: M WUC 13:14
PROVIDERS: ATTEND Student in an Organized Health Care Education/Training Program
DX: R73.9 Hyperglycemia, unspecified (principal)

== ENCOUNTER → 2021-10-09 | Outpatient (CLI) | payer OTHER ==
[~2021-10-09] MED LIST changes: +AMIT50TA; +METF-839 PO; +ONDA4TAB6; +PROP20TA72; +RIZA5TAB52
[2021-10-09 11:37] LABS: BLOOD UREA NITROGEN 11 MG/DL (7-18); CALCIUM LEVEL 9.6 MG/DL (8.5-10.1); CARBON DIOXIDE LEVEL 31 MEQ/L (21-32); CHLORIDE LEVEL 104 MEQ/L (98-107); CREATININE FOR GFR 0.82 MG/DL (0.70-1.30); GLOMERULAR FILTRATION RATE > 60.0 (>60); GLUCOSE, FASTING 135 MG/DL (70-100); POTASSIUM SERUM 4.4 MEQ/L (3.5-5.1); SODIUM LEVEL 138 MEQ/L (136-145)
== END ==
LOC: M LAB 10:25
PROVIDERS: ATTEND Family Medicine
DX: E11.9 Type 2 diabetes mellitus without complications (principal)

== ENCOUNTER → 2022-01-26 | Outpatient (CLI) | payer OTHER ==
[2022-01-26 15:55] LABS: BASO # 0.1 10^3/uL (0.0-0.2); BASO % 0.8 % (0.0-1.0); EOS # 0.4 10^3/uL (0.0-0.5); EOS % 4.7 % (0.0-3.0); HEMATOCRIT 45.1 % (42.0-52.0); HEMOGLOBIN 15.7 g/dl (13.5-17.5); LYMPH # 2.6 10^3/uL (1.5-5.0); LYMPH % 30.6 % (24.0-44.0); MEAN CORPUSCULAR HEMOGLOBIN 30.9 pg (27.0-33.0); MEAN CORPUSCULAR HGB CONC 34.8 g/dl (32.0-36.5); MEAN CORPUSCULAR VOLUME 88.8 fl (80.0-96.0); MONO # 0.6 10^3/uL (0.0-0.8); MONO % 7.6 % (2.0-8.0); NEUTROPHILS # 4.7 10^3/uL (1.5-8.5); NEUTROPHILS % 55.7 % (36.0-66.0); PLATELET COUNT, AUTOMATED 241 10^3/uL (150-450); RED BLOOD COUNT 5.08 10^6/uL (4.30-6.10); WHITE BLOOD COUNT 8.5 10^3/uL (4.0-10.0)
[2022-01-26 16:33] LABS: THYROID STIMULATING HORMONE 5.942 uIU/ML (0.55-4.78)
[2022-01-26 16:34] LABS: VITAMIN B12 LEVEL 455 PG/ML (211-911)
[2022-01-26 16:43] LABS: ALBUMIN 4.5 G/DL (3.2-5.2); ALKALINE PHOSPHATASE 75 U/L (46-116); ALT/SGPT 58 U/L (7.0-40); AST/SGOT 25 U/L (<34); BILIRUBIN,TOTAL 1.1 MG/DL (0.3-1.2); BLOOD UREA NITROGEN 12 MG/DL (9-23); CARBON DIOXIDE LEVEL 27 MMOL/L (20-31); CHLORIDE LEVEL 105 MMOL/L (98-107); CREATININE FOR GFR 0.71 MG/DL (0.70-1.30); FOLATE 19.6 NG/ML (>5.4); GLOMERULAR FILTRATION RATE > 60.0 (>60); GLUCOSE, FASTING 108 MG/DL (60-100); POTASSIUM SERUM 4.7 MMOL/L (3.5-5.1); SODIUM LEVEL 141 MMOL/L (136-145); TOTAL PROTEIN 7.5 G/DL (5.7-8.2)
== END ==
LOC: M LAB 14:55
PROVIDERS: ATTEND Psychiatry & Neurology Neurology
DX: R56.9 Unspecified convulsions (principal); E51.9 Thiamine deficiency, unspecified; E53.8 Deficiency of other specified B group vitamins; E55.9 Vitamin D deficiency, unspecified

== ENCOUNTER → 2022-07-02 | Outpatient (CLI) | payer OTHER ==
[2022-07-02 14:58] LABS: BASO # 0.1 10^3/uL (0.0-0.2); BASO % 0.8 % (0.0-1.0); EOS # 0.4 10^3/uL (0.0-0.5); EOS % 4.3 % (0.0-3.0); HEMATOCRIT 45.7 % (42.0-52.0); HEMOGLOBIN 15.8 g/dl (13.5-17.5); LYMPH # 2.8 10^3/uL (1.5-5.0); LYMPH % 28.9 % (24.0-44.0); MEAN CORPUSCULAR HGB CONC 34.6 g/dl (32.0-36.5); MEAN CORPUSCULAR VOLUME 89.8 fl (80.0-96.0); MONO # 0.9 10^3/uL (0.0-0.8); MONO % 9.5 % (2.0-8.0); NEUTROPHILS # 5.4 10^3/uL (1.5-8.5); NEUTROPHILS % 55.9 % (36.0-66.0); PLATELET COUNT, AUTOMATED 259 10^3/uL (150-450); RED BLOOD COUNT 5.09 10^6/uL (4.30-6.10); WHITE BLOOD COUNT 9.7 10^3/uL (4.0-10.0)
[2022-07-02 15:20] LABS: VALPROIC ACID (DEPAKOTE) 97.2 UG/ML (50.0-100.0)
[2022-07-02 15:22] LABS: ALBUMIN 4.3 G/DL (3.2-5.2); ALKALINE PHOSPHATASE 65 U/L (46-116); ALT/SGPT 61 U/L (7.0-40); AST/SGOT 25 U/L (<34); BILIRUBIN,TOTAL 1.2 MG/DL (0.3-1.2); BLOOD UREA NITROGEN 13 MG/DL (9-23); CALCIUM LEVEL 9.9 MG/DL (8.5-10.1); CARBON DIOXIDE LEVEL 29 MMOL/L (20-31); CHLORIDE LEVEL 101 MMOL/L (98-107); CREATININE FOR GFR 0.74 MG/DL (0.70-1.30); GLOMERULAR FILTRATION RATE > 60.0 (>60); GLUCOSE, FASTING 101 MG/DL (60-100); POTASSIUM SERUM 5.3 MMOL/L (3.5-5.1); SODIUM LEVEL 138 MMOL/L (136-145); TOTAL PROTEIN 7.4 G/DL (5.7-8.2)
== END ==
LOC: M LAB 13:56
PROVIDERS: ATTEND Psychiatry & Neurology Neurology
DX: R56.9 Unspecified convulsions (principal)

== ENCOUNTER → 2023-08-19 | Outpatient (CLI) | payer OTHER ==
[~2023-08-19] MED LIST changes: +ONDA-282; -ONDA4TAB6
[2023-08-19 09:28] LABS: BASO # 0.1 10^3/uL (0.0-0.2); BASO % 0.8 % (0.0-1.0); EOS # 0.3 10^3/uL (0.0-0.5); EOS % 4.5 % (0.0-3.0); HEMATOCRIT 47.9 % (42.0-52.0); HEMOGLOBIN 16.9 g/dl (13.5-17.5); LYMPH # 1.9 10^3/uL (1.5-5.0); LYMPH % 26.6 % (24.0-44.0); MEAN CORPUSCULAR HEMOGLOBIN 30.7 pg (27.0-33.0); MEAN CORPUSCULAR HGB CONC 35.3 g/dl (32.0-36.5); MEAN CORPUSCULAR VOLUME 87.1 fl (80.0-96.0); MONO # 0.5 10^3/uL (0.0-0.8); MONO % 7.3 % (2.0-8.0); NEUTROPHILS # 4.4 10^3/uL (1.5-8.5); NEUTROPHILS % 60.4 % (36.0-66.0); PLATELET COUNT, AUTOMATED 233 10^3/uL (150-450); WHITE BLOOD COUNT 7.3 10^3/uL (4.0-10.0)
[2023-08-19 10:04] LABS: ALBUMIN 4.5 G/DL (3.2-5.2); ALKALINE PHOSPHATASE 72 U/L (46-116); ALT/SGPT 112 U/L (7.0-40); AST/SGOT 44 U/L (<34); BILIRUBIN,TOTAL 1.6 MG/DL (0.3-1.2); BLOOD UREA NITROGEN 10 MG/DL (9-23); CALCIUM LEVEL 10.2 MG/DL (8.5-10.1); CARBON DIOXIDE LEVEL 30 MMOL/L (20-31); CHLORIDE LEVEL 103 MMOL/L (98-107); CREATININE FOR GFR 0.81 MG/DL (0.70-1.30); GLOMERULAR FILTRATION RATE > 60.0 (>60); GLUCOSE, FASTING 104 MG/DL (60-100); POTASSIUM SERUM 4.3 MMOL/L (3.5-5.1); SODIUM LEVEL 139 MMOL/L (136-145); TOTAL PROTEIN 7.1 G/DL (5.7-8.2)
== END ==
LOC: M LAB 08:52
PROVIDERS: ATTEND Psychiatry & Neurology Neurology
DX: G40.89 Other seizures (principal)

== ENCOUNTER 2023-11-08 07:38 | Emergency (ER) | payer OTHER ==
[~2023-11-08] VITALS: Ht 175.3 cm; Wt 105.9 kg
[2023-11-08] MEDS ORDERED: LEVE10003 (08:01)
[2023-11-08] MEDS ORDERED: AMLO1TAB24 (08:01)
[2023-11-08] MEDS ORDERED: BUSP15TA47 (08:01)
[2023-11-08] MEDS ORDERED: OXCA600T8 (08:01)
[2023-11-08 11:07] VITALS: BP 128/80; TEMP 99.8; O2SAT 99
== END 2023-11-08 11:32 | disposition home or self-care (01) ==
LOC: M ED 07:38
DX: G44.221 Chronic tension-type headache, intractable (principal); H66.91 Otitis media, unspecified, right ear; G40.909 Epilepsy, unspecified, not intractable, without status epilepticus; E11.9 Type 2 diabetes mellitus without complications; Z79.2 Long term (current) use of antibiotics; Z79.4 Long term (current) use of insulin; Z79.899 Other long term (current) drug therapy

== ENCOUNTER → 2024-05-09 | Outpatient (CLI) | payer OTHER ==
[~2024-05-09] MED LIST changes: +AMLO1TAB24; +BUSP15TA47; +LEVE10003; +OXCA600T8
[2024-05-09 12:15] LABS: BASO # 0.1 10^3/uL (0.0-0.2); BASO % 0.8 % (0.0-1.0); EOS # 0.3 10^3/uL (0.0-0.5); EOS % 4.3 % (0.0-3.0); HEMATOCRIT 49.7 % (42.0-52.0); HEMOGLOBIN 17.9 g/dl (13.5-17.5); LYMPH # 2.4 10^3/uL (1.5-5.0); LYMPH % 32.4 % (24.0-44.0); MEAN CORPUSCULAR HEMOGLOBIN 31.1 pg (27.0-33.0); MEAN CORPUSCULAR VOLUME 86.4 fl (80.0-96.0); MONO # 0.6 10^3/uL (0.0-0.8); MONO % 7.7 % (2.0-8.0); NEUTROPHILS % 54.4 % (36.0-66.0); PLATELET COUNT, AUTOMATED 247 10^3/uL (150-450); RED BLOOD COUNT 5.75 10^6/uL (4.30-6.10); WHITE BLOOD COUNT 7.3 10^3/uL (4.0-10.0)
[2024-05-09 12:38] LABS: ALBUMIN 4.7 G/DL (3.2-5.2); ALKALINE PHOSPHATASE 79 U/L (40-129); ALT/SGPT 83 U/L (7.0-40); AST/SGOT 27 U/L (<34); BLOOD UREA NITROGEN 13 MG/DL (9-23); CALCIUM LEVEL 10.2 MG/DL (8.5-10.1); CARBON DIOXIDE LEVEL 29 MMOL/L (20-31); CHLORIDE LEVEL 101 MMOL/L (98-107); CREATININE FOR GFR 0.83 MG/DL (0.70-1.30); GLOMERULAR FILTRATION RATE > 60.0 (>60); GLUCOSE, FASTING 92 MG/DL (60-100); POTASSIUM SERUM 3.9 MMOL/L (3.5-5.1); SODIUM LEVEL 141 MMOL/L (136-145); TOTAL PROTEIN 7.5 G/DL (5.7-8.2)
== END ==
LOC: M LAB 10:56
PROVIDERS: ATTEND Psychiatry & Neurology Neurology
DX: R56.9 Unspecified convulsions (principal); I67.850 Cerebral autosomal dominant arteriopathy with subcortical infarcts and leukoencephalopathy

== ENCOUNTER → 2024-06-14 | Outpatient (CLI) | payer OTHER ==
[2024-06-14 09:09] LABS: BASO # 0.1 10^3/uL (0.0-0.2); BASO % 0.7 % (0.0-1.0); EOS # 0.3 10^3/uL (0.0-0.5); EOS % 4.1 % (0.0-3.0); HEMOGLOBIN 16.6 g/dl (13.5-17.5); LYMPH # 2.5 10^3/uL (1.5-5.0); LYMPH % 35.5 % (24.0-44.0); MEAN CORPUSCULAR HEMOGLOBIN 30.7 pg (27.0-33.0); MEAN CORPUSCULAR HGB CONC 35.3 g/dl (32.0-36.5); MEAN CORPUSCULAR VOLUME 86.9 fl (80.0-96.0); MONO # 0.5 10^3/uL (0.0-0.8); MONO % 7.1 % (2.0-8.0); NEUTROPHILS # 3.7 10^3/uL (1.5-8.5); NEUTROPHILS % 52.3 % (36.0-66.0); PLATELET COUNT, AUTOMATED 237 10^3/uL (150-450); RED BLOOD COUNT 5.41 10^6/uL (4.30-6.10); WHITE BLOOD COUNT 7.1 10^3/uL (4.0-10.0)
[2024-06-14 09:19] LABS: ERYTHROCYTE SEDIMENTATION RATE < 1 mm/hr (0-15)
[2024-06-14 09:42] LABS: ALBUMIN 4.6 G/DL (3.2-5.2); ALKALINE PHOSPHATASE 70 U/L (40-129); ALT/SGPT 89 U/L (7.0-40); AST/SGOT 33 U/L (<34); BILIRUBIN,TOTAL 1.1 MG/DL (0.3-1.2); BLOOD UREA NITROGEN 13 MG/DL (9-23); C REACTIVE PROTEIN QUANTITATIV < 0.50 MG/DL (<1.0); CALCIUM LEVEL 9.7 MG/DL (8.5-10.1); CARBON DIOXIDE LEVEL 29 MMOL/L (20-31); CHLORIDE LEVEL 101 MMOL/L (98-107); CHOLESTEROL LEVEL 202 MG/DL (<200); CHOLESTEROL RISK RATIO 5.85 (<5); CREATININE FOR GFR 0.91 MG/DL (0.70-1.30); GLOMERULAR FILTRATION RATE > 90.0 (>60); GLUCOSE, FASTING 94 MG/DL (60-100); HDL CHOLESTEROL 34.5 MG/DL (>40); IMMUNOGLOBULIN A 115.5 MG/DL (40-350); NON-HDL-C 167.5 MG/DL; POTASSIUM SERUM 4.5 MMOL/L (3.5-5.1); SODIUM LEVEL 137 MMOL/L (136-145); TOTAL PROTEIN 7.1 G/DL (5.7-8.2); TRIGLYCERIDES LEVEL 571 MG/DL (<150)
[2024-06-14 09:44] LABS: THYROID STIMULATING HORMONE 2.723 uIU/ML (0.55-4.78)
== END ==
LOC: M LAB 08:30
PROVIDERS: ATTEND Family Medicine
DX: F41.8 Other specified anxiety disorders (principal); I67.89 Other cerebrovascular disease; R19.7 Diarrhea, unspecified; R73.9 Hyperglycemia, unspecified; R56.9 Unspecified convulsions

== ENCOUNTER → 2025-02-13 | Outpatient (CLI) | payer OTHER, SELFPAY ==
[~2025-02-13] MED LIST changes: +AMIT10TA11 PO; -AMIT10TA7 PO; -DEPA250T32 PO; +DIVA-41 PO; +DIVA-65 PO; -DIVA500T94 PO
[2025-02-13 11:17] LABS: CHOLESTEROL LEVEL 204 MG/DL (<200); CHOLESTEROL RISK RATIO 6.27 (<5); NON-HDL-C 171.5 MG/DL; TRIGLYCERIDES LEVEL 455 MG/DL (<150)
== END ==
LOC: M LAB 10:12
PROVIDERS: ATTEND Family Medicine
DX: E78.1 Pure hyperglyceridemia (principal)